=== PATIENT | female | born 1925 | race Caucasian/White ===

== ENCOUNTER 2017-02-27 08:00 | Outpatient (CLI) | payer MEDICARE, BC | END 2017-02-27 23:59 | disposition home health service (06) | LOC: WOU 08:00 | PROVIDERS: ATTEND Podiatrist Foot & Ankle Surgery | DX: L89.524 Pressure ulcer of left ankle, stage 4 (principal); L89.894 Pressure ulcer of other site, stage 4; Z99.3 Dependence on wheelchair; I13.0 Hypertensive heart and chronic kidney disease with heart failure and stage 1 through stage 4 chronic kidney disease, or unspecified chronic kidney disease; N18.9 Chronic kidney disease, unspecified; I50.9 Heart failure, unspecified; Z79.01 Long term (current) use of anticoagulants; Z79.82 Long term (current) use of aspirin; Z79.899 Other long term (current) drug therapy; I73.9 Peripheral vascular disease, unspecified; R60.0 Localized edema; L03.116 Cellulitis of left lower limb | CPT/HCPCS: 73590; 73610; 87070; 87077; 87186 ×2; A6402; G0463; 87075-TC ==

== ENCOUNTER 2017-03-03 14:16 | Outpatient (CLI) | payer MEDICARE, BC | END 2017-03-03 23:59 | disposition home or self-care (01) | LOC: WOU 14:16 | PROVIDERS: ATTEND Podiatrist Foot & Ankle Surgery | DX: L89.899 Pressure ulcer of other site, unspecified stage (principal); I70.203 Unspecified atherosclerosis of native arteries of extremities, bilateral legs; I77.1 Stricture of artery | CPT/HCPCS: 93925; A6402 ==

== ENCOUNTER 2017-03-06 08:00 | Outpatient (CLI) | payer MEDICARE, BC | END 2017-03-06 23:59 | disposition home health service (06) | LOC: WOU 08:00 | PROVIDERS: ATTEND Podiatrist Foot & Ankle Surgery | DX: L89.894 Pressure ulcer of other site, stage 4 (principal); I77.1 Stricture of artery; L08.89 Other specified local infections of the skin and subcutaneous tissue; B95.2 Enterococcus as the cause of diseases classified elsewhere; B96.20 Unspecified Escherichia coli [E. coli] as the cause of diseases classified elsewhere; Z16.24 Resistance to multiple antibiotics; Z99.3 Dependence on wheelchair; I70.203 Unspecified atherosclerosis of native arteries of extremities, bilateral legs; M85.862 Other specified disorders of bone density and structure, left lower leg; S82.892G Other fracture of left lower leg, subsequent encounter for closed fracture with delayed healing; X58.XXXD Exposure to other specified factors, subsequent encounter | CPT/HCPCS: 11043; 87070-TC; 87186-TC ==

== ENCOUNTER 2017-03-13 09:30 | Outpatient (CLI) | payer MEDICARE, BC | END 2017-03-13 23:59 | disposition home health service (06) | LOC: WOU 09:30 | PROVIDERS: ATTEND Podiatrist Foot & Ankle Surgery | DX: L89.894 Pressure ulcer of other site, stage 4 (principal); L03.116 Cellulitis of left lower limb; I77.1 Stricture of artery; B95.2 Enterococcus as the cause of diseases classified elsewhere; B96.20 Unspecified Escherichia coli [E. coli] as the cause of diseases classified elsewhere; Z16.24 Resistance to multiple antibiotics; Z99.3 Dependence on wheelchair; I70.203 Unspecified atherosclerosis of native arteries of extremities, bilateral legs; M85.862 Other specified disorders of bone density and structure, left lower leg; S82.892G Other fracture of left lower leg, subsequent encounter for closed fracture with delayed healing; X58.XXXD Exposure to other specified factors, subsequent encounter | CPT/HCPCS: 11043; 87070; A6402 ==

== ENCOUNTER 2017-03-27 09:40 | Outpatient (CLI) | payer MEDICARE, BC | END 2017-03-27 23:59 | disposition home health service (06) | LOC: WOU 09:40 | PROVIDERS: ATTEND Podiatrist Foot & Ankle Surgery | DX: L89.894 Pressure ulcer of other site, stage 4 (principal); R60.0 Localized edema; I12.9 Hypertensive chronic kidney disease with stage 1 through stage 4 chronic kidney disease, or unspecified chronic kidney disease; N18.9 Chronic kidney disease, unspecified; Z87.81 Personal history of (healed) traumatic fracture | CPT/HCPCS: 11043; A6402 ==

== ENCOUNTER 2017-04-03 09:45 | Outpatient (CLI) | payer MEDICARE, BC | END 2017-04-03 23:59 | disposition home health service (06) | LOC: WOU 09:45 | PROVIDERS: ATTEND Podiatrist Foot & Ankle Surgery | DX: L89.894 Pressure ulcer of other site, stage 4 (principal); Z99.3 Dependence on wheelchair; R60.0 Localized edema; Z87.81 Personal history of (healed) traumatic fracture; M85.862 Other specified disorders of bone density and structure, left lower leg; I77.1 Stricture of artery; I12.9 Hypertensive chronic kidney disease with stage 1 through stage 4 chronic kidney disease, or unspecified chronic kidney disease; N18.9 Chronic kidney disease, unspecified | CPT/HCPCS: 11043; A6402 ==

== ENCOUNTER 2017-04-07 13:35 | Outpatient (CLI) | payer MEDICARE, BC | END 2017-04-07 23:59 | disposition home health service (06) | LOC: VASLAB 13:35 | PROVIDERS: ATTEND Surgery Vascular Surgery | DX: I73.9 Peripheral vascular disease, unspecified (principal); L89.894 Pressure ulcer of other site, stage 4; Z95.2 Presence of prosthetic heart valve; Z79.01 Long term (current) use of anticoagulants; Z74.09 Other reduced mobility; I77.9 Disorder of arteries and arterioles, unspecified | CPT/HCPCS: A6402; G0463 ==

== ENCOUNTER 2017-04-10 08:20 | Outpatient (CLI) | payer MEDICARE, BC | END 2017-04-10 23:59 | disposition home health service (06) | LOC: WOU 08:20 | PROVIDERS: ATTEND Podiatrist Foot & Ankle Surgery | DX: L89.524 Pressure ulcer of left ankle, stage 4 (principal); L03.116 Cellulitis of left lower limb; Z95.2 Presence of prosthetic heart valve; Z79.01 Long term (current) use of anticoagulants; Z74.09 Other reduced mobility; I77.9 Disorder of arteries and arterioles, unspecified; R60.0 Localized edema; Z99.3 Dependence on wheelchair; I12.9 Hypertensive chronic kidney disease with stage 1 through stage 4 chronic kidney disease, or unspecified chronic kidney disease; N18.9 Chronic kidney disease, unspecified | CPT/HCPCS: 11043; A6402; A6407 ==

== ENCOUNTER 2017-04-17 09:15 | Outpatient (CLI) | payer MEDICARE, BC | END 2017-04-17 23:59 | disposition home health service (06) | LOC: WOU 09:15 | PROVIDERS: ATTEND Podiatrist Foot & Ankle Surgery | DX: L89.894 Pressure ulcer of other site, stage 4 (principal); R60.0 Localized edema; L03.116 Cellulitis of left lower limb; Z95.2 Presence of prosthetic heart valve; Z79.01 Long term (current) use of anticoagulants; Z74.09 Other reduced mobility; I77.9 Disorder of arteries and arterioles, unspecified; I12.9 Hypertensive chronic kidney disease with stage 1 through stage 4 chronic kidney disease, or unspecified chronic kidney disease; N18.9 Chronic kidney disease, unspecified; Z99.3 Dependence on wheelchair | CPT/HCPCS: 11043; A6402; A6407 ==

== ENCOUNTER 2017-04-28 12:30 | Outpatient (CLI) | payer MEDICARE, BC | END 2017-04-28 23:59 | disposition home health service (06) | LOC: WOU 12:30 | PROVIDERS: ATTEND Podiatrist Foot & Ankle Surgery | DX: L89.894 Pressure ulcer of other site, stage 4 (principal); R60.0 Localized edema; Z95.2 Presence of prosthetic heart valve; Z79.01 Long term (current) use of anticoagulants; Z74.09 Other reduced mobility; I77.9 Disorder of arteries and arterioles, unspecified; I12.9 Hypertensive chronic kidney disease with stage 1 through stage 4 chronic kidney disease, or unspecified chronic kidney disease; N18.9 Chronic kidney disease, unspecified; Z99.3 Dependence on wheelchair | CPT/HCPCS: 11043; A6402; A6407 ==

== ENCOUNTER 2017-05-05 09:10 | Outpatient (CLI) | payer MEDICARE, BC ==
[2017-05-05] MEDS ORDERED: METO50TA3 PO (11:55)
[2017-05-05] MEDS ORDERED: ATOR10TA PO (11:55)
[2017-05-05] MEDS ORDERED: WARF6TAB23 PO (11:55)
[2017-05-05] MEDS ORDERED: FURO20TA4 PO (11:55)
[2017-05-05] MEDS ORDERED: CIPR500T5 PO (11:55)
[2017-05-05] MEDS ORDERED: ALEN70TA45 PO (11:55)
[2017-05-05] MEDS ORDERED: WARF4TAB6 PO (11:55)
[2017-05-05] MEDS ORDERED: CELE200C PO (11:55)
[2017-05-05] MEDS ORDERED: LOSA50TA21 PO (11:55)
== END 2017-05-05 23:59 | disposition home health service (06) ==
LOC: WOU 09:10
PROVIDERS: ATTEND Podiatrist Foot & Ankle Surgery
DX: L89.894 Pressure ulcer of other site, stage 4 (principal); Z74.01 Bed confinement status; L90.9 Atrophic disorder of skin, unspecified; I95.9 Hypotension, unspecified; I12.9 Hypertensive chronic kidney disease with stage 1 through stage 4 chronic kidney disease, or unspecified chronic kidney disease; N18.9 Chronic kidney disease, unspecified; M19.90 Unspecified osteoarthritis, unspecified site; R41.82 Altered mental status, unspecified
CPT/HCPCS: A6402; G0463

== ENCOUNTER 2017-05-05 09:45 | Inpatient (IN) | payer MEDICARE, BC ==
[~2017-05-05] VITALS: Ht 157.5 cm; Wt 77.2 kg
--- NOTE | 2017-05-05 09:45 | NUR ---
BIBVINAY FROM AMPUTATION PREVENTION FOR GENERALIZED WEAKNESS. PATIENT A/OX 2. BREATHING EVEN AND UNLABORED. NO SOB. HYPOTENSIVE BUT NO DISTRESS. SAFETY AND COMFORT MEASURES IN PLACE. AWAITING MD ORDERS.
[2017-05-05] MEDS ORDERED: VANCOMYCIN 1 GM in IV D5W 250 ML IV ONE (10:00)
[2017-05-05] MEDS ORDERED: IV NS 0.9% 1,000 ML BAG IV ONE (10:00)
[2017-05-05] MEDS ORDERED: PIPERACILLIN /TAZOBACTAM 3.375 G in IV D5W 50 ML IV ONE (10:00)
--- NOTE | 2017-05-05 10:15 | NUR ---
new iv started on lfa, 20 g. blood drawn and sent to lab.
[2017-05-05 10:34] LABS: BASOPHILS # (AUTO) 0.1 /CMM (0.0-0.2); BASOPHILS % (AUTO) 0.6 % (0.0-2.0); EOSINOPHILS # (AUTO) 0.2 /CMM (0.0-0.7); HEMATOCRIT 35 % (33-45); HEMOGLOBIN 11.6 g/dL (11.5-14.8); INR 2.26 (0.87-1.13); LYMPHOCYTES # (AUTO) 1.5 /CMM (0.8-4.8); MEAN CORPUSCULAR HEMOGLOBIN 32 PG (26.0-33.0); MEAN CORPUSCULAR HGB CONC 33 g/dl (31.0-36.0); MEAN CORPUSCULAR VOLUME 96 fL (82-100); MONOCYTES # (AUTO) 0.6 /CMM (0.1-1.30); MONOCYTES % (AUTO) 6.3 % (2.0-12.0); NEUTROPHILS # (AUTO) 7.7 /CMM (1.8-8.9); NEUTROPHILS % (AUTO) 76.1 % (43.0-81.0); PLATELET COUNT (AUTO) 244 /CMM (150-450); PROTHROMBIN TIME 23.5 SECS (9.5-12.7); RDW COEFFICIENT OF VARIATION 14.6 (11.5-15.0); RED BLOOD CELL COUNT(AUTO) 3.66 MIL/uL (4.0-5.2); WHITE BLOOD COUNT (AUTO) 10.1 K/uL (4.3-11.0)
[2017-05-05 10:39] LABS: TROPONIN I < 0.017 ng/mL (0.00-0.056)
[2017-05-05 10:49] LABS: ALANINE AMINOTRANSFERASE 17 U/L (12-78); ALBUMIN 2.6 g/dL (3.4-5.0); ALKALINE PHOSPHATASE 59 U/L (46-116); ASPARTATE AMINOTRANSFERASE 16 U/L (15-37); B-TYPE NATRIURETIC PEPTIDE 1540 PG/ML (0-125); BILIRUBIN,TOTAL 0.2 mg/dL (0.2-1.0); CALCIUM, SERUM 8.4 mg/dL (8.5-10.1); CARBON DIOXIDE 25 mmol/L (21-32); CHLORIDE 106 mmol/L (98-107); CREATININE 2.1 mg/dL (0.6-1.3); GLUCOSE 123 mg/dL (74-106); POTASSIUM 6.1 mmol/L (3.5-5.1); SODIUM SERUM 139 mmol/L (136-145); TOTAL PROTEIN, SERUM 6.3 g/dL (6.4-8.2)
[2017-05-05 10:50] LABS: UREA NITROGEN, BLOOD 97 mg/dL (7-18)
--- NOTE | 2017-05-05 11:25 | NUR ---
Per Dr. Noland, insert burgos cath inserted per protocol. tolerated well.
[2017-05-05] MEDS ORDERED: ALEN70TA45 PO (11:55)
[2017-05-05] MEDS ORDERED: WARF4TAB6 PO (11:55)
[2017-05-05] MEDS ORDERED: LOSA50TA21 PO (11:55)
[2017-05-05] MEDS ORDERED: CELE200C PO (11:55)
[2017-05-05] MEDS ORDERED: WARF6TAB23 PO (11:55)
[2017-05-05] MEDS ORDERED: FURO20TA4 PO (11:55)
[2017-05-05] MEDS ORDERED: ATOR10TA PO (11:55)
[2017-05-05] MEDS ORDERED: CIPR500T5 PO (11:55)
[2017-05-05] MEDS ORDERED: METO50TA3 PO (11:55)
--- NOTE | 2017-05-05 11:59 | NUR ---
PATIENT ACCEPTED BY DR FALL AND ASSIGNED TO TELE 321-1, DX CELLULILITIS AND HYPOTENSION.
--- NOTE | 2017-05-05 12:26 | NUR ---
REPORT GIVEN TO CLAIRE BERNAL FOR ADMISSION.
[2017-05-05 12:30] VITALS: BP 118/50
[2017-05-05 12:44] LABS: APPEARANCE,URINE Clear (CLEAR); BILIRUBIN,URINE Negative (NEGATIVE); BLOOD, URINE Negative Ery/uL (NEGATIVE); COLOR,URINE Yellow (YELLOW); KETONES,URINE Negative (NEGATIVE); LEUKOCYTE ESTERASE ,URINE Negative (NEGATIVE); NITRITE, URINE Negative (NEGATIVE); PROTEIN,URINE Negative (NEGATIVE); UGLUCOSE Negative (NEGATIVE); UROBILINOGEN,URINE 0.2 EU/dL (0.2)
[2017-05-05 12:57] VITALS: BP 118/50
--- NOTE | 2017-05-05 13:00 | NUR ---
MECHANIC MARINE ENGINE NOTES PATIENT ADMITTED FROM ER ON TELE, CHEST MONITOR APPLIED. PT A/A/O X3, ON 02 -2L NC, NO RESPIRATORY DISTRESS, NO SOB , V/S TAKE BP-118/50, P-72, R-19, T-97.8, O2-95 2.0L NC. PT ON F/C DRAIN LIGHT YELLOW OUTPUT, INTACT. SKIN ASSESSMENT TAKEN 2 SMALL WOUND OPENING LEFT LOWER LATERAL AREA, AND ONE POSTERIOR , PICTURE TAKE, AND WOUND CONSULT TRIGGERED, ALSO LEFT FOOT EDEMA. NEEDS ATTENDED AND ANTICIPATED, BELONGING CHECKED, PATIENT VERBALIZED UNDERSTANDING. DR FALL AWARE OF NEW PATIENT AND MEDICATION, CONTINUED MONITORING.
[2017-05-05] MEDS ORDERED: ONDANSETRON HCL/PF 4 MG/2 ML VIAL IVP PRN (13:30)
[2017-05-05] MEDS ORDERED: MAG HYDROX/AL HYDROX/SIMETH 30 ML UDC PO PRN (13:30)
[2017-05-05] MEDS ORDERED: VANCOMYCIN 1 GM in IV D5W 250 ML IV SCH (13:30)
[2017-05-05] MEDS ORDERED: MAGNESIUM HYDROXIDE 30 ML UDC PO PRN (13:30)
[2017-05-05] MEDS ORDERED: ZOLPIDEM TARTRATE 5 MG TABLET PO PRN (13:30)
[2017-05-05] MEDS ORDERED: FEE PK DOSING 1 MIN EA MC ONE (14:16)
[2017-05-05] MEDS ORDERED: SODIUM POLYSTYRENE SULFONATE 15 G/60 ML BOTTLE PO ONE (14:30)
[2017-05-05] MEDS ORDERED: CEFTRIAXONE 1 G in IV D5W 50 ML IV SCH (15:00)
[2017-05-05 16:00] VITALS: BP 129/61
[2017-05-05] MEDS: METOPROLOL TARTRATE 50 MG TABLET PO SCH (16:56)
[2017-05-05] MEDS: WARFARIN SODIUM 1 MG TABLET PO SCH (16:58)
--- NOTE | 2017-05-05 17:00 | NUR ---
RN NOTES PATIENT IN THE BED, NO ACUTE DISTRESS, NO C/O PAIN AT THIS TIME, ON O2-2L NC, ASSIST TURN AND REPOSITION Q 2 HR, PT MED COMPLIANT, V/S STABLE, PUT DRESSING ON LEFT LOWER LEG, NEEDS ATTENDED AND ANTICIPATED, PRIVET PATIENT SERVICE REPRESENTATIVE NEXT TO THE BED , CALL LIGHT WITHIN TO REACH, SAFETY PRECAUTION MAINTAINED ALL THE TIME.
--- NOTE | 2017-05-05 19:12 | NUR ---
RN NOTES PATIENT A/O X3, NO COMPLAINING OF PAIN AT THIS TIME, HEP LOCK ON LEFT FOREARM, INTACT, NO RESPIRATORY DISTRESS, PRIVET FRACTIONATING STILL OPERATOR NEXT TO THE BED, CALL LIGHT WITHIN TO REACH, SAFETY PRECAUTION MAINTAINED ALL THE TIME, ENDORSED ONCOMING NURSE FOR CONTINUATION OF CARE.
--- NOTE | 2017-05-05 19:45 | NUR ---
RN OPENING NOTES RECEIVED REPORT FROM MONICO RN, RUDDY. FOUND Pt RESTING IN BED. A/OX2, VERBAL, ABLE TO MAKE NEEDS KNOWN. NO S/S OF ACUTE DISTRESS OR SOB NOTED. Pt IS A/OX2, AWARE TO NAME AND PLACE, BUT UNCERTAIN OF DATE AND YEAR. BELIEVES THAT CHER GILLIAM IS THE CURRENT PRESIDENT OF THE [employer]. PRIVATE CAREGIVER IS AT BEDSIDE WITH Pt. ON TELE. HONG CATHETER IN PLACE. IV ACCESS ON LFA #20G, SL. SAFETY MEASURES IN PLACE. BED LOW, LOCKED, HOB ELEVATED, SIDE RAILS UP, CALL LIGHT AND BEDSIDE TABLE WITHIN REACH. WILL CONTINUE TO MONITOR Pt THROUGHOUT THE NIGHT FOR SAFETY.
[2017-05-05 20:26] VITALS: BP 117/49
[2017-05-05] MEDS: ATORVASTATIN 10 MG TABLET PO SCH (21:49)
[2017-05-05] MEDS: MEROPENEM 500 MG in IV NS 0.9% 50 ML IV SCH (21:49)
[2017-05-05 23:50] VITALS: BP 115/59
[2017-05-06] VITALS (8 sets, daily range): BP systolic 111–126; BP diastolic 48–82
--- NOTE | 2017-05-06 06:50 | NUR ---
RN CLOSING NOTES NO SIGNIFICANT CHANGES NOTED DURING THE SHIFT. NO S/S OF ACUTE DISTRESS OR SOB NOTED. ALL NEEDS MET AND ATTENDED TO. SAFETY MEASURES IN PLACE. TELE READING SR 92, 1ST DEGREE BLOCK W/BBB. WILL ENDORSE TO DAYSHIFT RN FOR Pt's CRYS.
[2017-05-06 07:20] LABS: INR 1.9 (0.87-1.13); PROTHROMBIN TIME 19.9 SECS (9.5-12.7)
[2017-05-06 07:22] LABS: CALCIUM, SERUM 7.9 mg/dL (8.5-10.1); CARBON DIOXIDE 27 mmol/L (21-32); CHLORIDE 110 mmol/L (98-107); CREATININE 1.8 mg/dL (0.6-1.3); GLUCOSE 95 mg/dL (74-106); MAGNESIUM 2.9 mg/dL (1.8-2.4); PHOSPHORUS 7.2 mg/dL (2.5-4.9); POTASSIUM 5.1 mmol/L (3.5-5.1); SODIUM SERUM 145 mmol/L (136-145)
[2017-05-06 07:24] LABS: BASOPHILS % (AUTO) 0.5 % (0.0-2.0); EOSINOPHILS # (AUTO) 0.2 /CMM (0.0-0.7); EOSINOPHILS % (AUTO) 2.8 % (0.0-6.0); HEMATOCRIT 34 % (33-45); HEMOGLOBIN 11.1 g/dL (11.5-14.8); LYMPHOCYTES # (AUTO) 1.5 /CMM (0.8-4.8); MEAN CORPUSCULAR HEMOGLOBIN 32 PG (26.0-33.0); MEAN CORPUSCULAR HGB CONC 33 g/dl (31.0-36.0); MEAN CORPUSCULAR VOLUME 97 fL (82-100); MONOCYTES # (AUTO) 0.6 /CMM (0.1-1.30); MONOCYTES % (AUTO) 6.7 % (2.0-12.0); NEUTROPHILS # (AUTO) 6.4 /CMM (1.8-8.9); PLATELET COUNT (AUTO) 218 /CMM (150-450); RDW COEFFICIENT OF VARIATION 14.8 (11.5-15.0); RED BLOOD CELL COUNT(AUTO) 3.52 MIL/uL (4.0-5.2); WHITE BLOOD COUNT (AUTO) 8.7 K/uL (4.3-11.0)
[2017-05-06 07:40] LABS: UREA NITROGEN, BLOOD 80 mg/dL (7-18)
--- NOTE | 2017-05-06 08:00 | NUR ---
RN NOTES RECEIVED PATIENT IN THE RISA, A/A/ OX3, REDIRECTABLE ON O2-2L NC, NO SOB, NO RESPIRATORY DISTRESS, PATIENT BED REST, ASSIST TURN AND REPOSITION Q 2 HR, F/C DRAIN DARK YELLOW OUTPUT, ENCOURAGED TO INCREASE FLUID INTAKE, CERTIFIED OPHTHALMIC TECHNOLOGIST NEXT TO THE BED, ASSIST TURN AND REPOSITION Q 2 HR, CALL LIGHT WITHIN TO REACH, SAFETY PRECAUTION MAINTAINED ALL THE TIME.
[2017-05-06 08:14] LABS: CHOLESTEROL 161 mg/dL (<200); HDL CHOLESTEROL 42 mg/dL (40-60); LDL 87 mg/dL (0-99); TRIGLYCERIDES 178 mg/dL (30-150)
[2017-05-06] MEDS: METOPROLOL TARTRATE 50 MG TABLET PO SCH ×2 (08:41→17:50)
[2017-05-06] MEDS: MEROPENEM 500 MG in IV NS 0.9% 50 ML IV SCH ×2 (08:42→20:51)
[2017-05-06] MEDS ORDERED: HYDROGEL DRESSING 90 GM TUBE TP PRN (09:30)
--- NOTE | 2017-05-06 09:33 | NUR ---
WOUND CARE CONSULT: PT PRESENTS WITH 3 WOUNDS TO LEFT LOWER LEG, PRESENT ON ADMISSION. RECOMMENDATIONS MADE FOR WOUND CARE AND SKIN PROTECTION. DISCUSSED WITH NURSING STAFF. ALL SKIN PROTECTION MEASURES IN PLACE. CAREGIVER AT BEDSIDE. CURRENT JOSHUA SCORE IS 17. WILL SEE PRN. DR ORDONEZ TO FOLLOW PT FOR LOWER EXTREMITY WOUNDS. MD IN AGREEMENT WITH PLAN OF CARE. Addendum: 05/06/17 at 0935 by LEW HOLLOWAY WNDNU Amended: Links added.
--- NOTE | 2017-05-06 11:28 | NUR ---
RN NOTES PATIENT IN THE ROOM, NO ACUTE DISTRESS, NO RESPIRATORY DISTRESS, HEP LOCK IN THE RIGHT WRIST GAUGE OF 22, INTACT, , ASSIST TURN AND REPOSITION Q 2 HR, LAB RESULT NOTIFIED DR FALL, WAITING FOR RESPOND, CALL LIGHT WITHIN TO REACH, PRIVET WELLNESS PROGRAM ADMINISTRATOR NEXT TO THE BED , SAFETY PRECAUTION MAINTAINED ALL THE TIME.
[2017-05-06] MEDS: HYDROGEL DRESSING 90 GM TUBE TP SCH (11:49)
[2017-05-06] MEDS: HYDROCODONE/APAP 5/325MG 1 EACH TABLET PO PRN ×2 (11:52→17:50)
--- NOTE | 2017-05-06 11:52 | NUR ---
RN NOTES PATIENT A/O X3,WAS C/O PAIN GENERALIZED , ADMINISTERED NARCO 5/325 MG PO PRN PER PATIENT REQUEST PER SLIDING SCALE PAIN 6/10, V/S TAKEN BP -108/56, P-76, NO ACUTE DISTRESS, ASSIST TURN AND REPOSITION Q 2 HR, ENCOURAGED TO INCREASE FLUID INTAKE, CALL LIGHT WITHIN TO REACH, PRIVET AIR HOLE DRILLER NEXT TO THE BED. SAFETY PRECAUTION MAINTAINED ALL THE TIME.
--- NOTE | 2017-05-06 14:10 | NUR ---
N NOTES PATIENT IN THE ROOM, NO ACUTE DISTRESS NO RESPIRATORY DISTRESS, , PATIENT ON O2L NC, DRESSING CHANGED ON LEFT LOWER LEG, WOUND CULTURE TAKEN, MEDICATION WERE ADMINISTERED FOR PAIN EFFECTIVE, ASSIST TURN AND REPOSITION, CALL LIGHT WITHIN TO REACH, ENCOURAGED TO INCREASE FLUID INTAKE, SAFETY PRECAUTION MAINTAINED ALL THE TIME. PT NEEDS ATTENDED AND ANTICIPATED.
--- NOTE | 2017-05-06 17:50 | NUR ---
RN NOTES PATIENT IN THE BED, HOB ELEVATED LOOP TACKER ASSISTING TO EAT, NO RESPIRATORY DISTRESS, PATIENT MED COMPLIANT, V/S STABLE, ASSIST TURN AND REPOSITION Q 2 HR AND PRN, NEEDS ATTENDED AND ANTICIPATED, F/C DRAIN YELLOW OUTPUT. PATIENT SON NEXT TO THE BED, AND WANTED DO SPEAK DR. FALL ABOUT PATIENT CONDITION, NOTIFIED, CALL LIGHT WITHIN TO REACH, ALSO ADMINISTERED PAIN MEDICATION NARCO 5/325 MG PO PRN FOR GENERALIZED 6/10, PER PATIENT REQUEST. CONTINUED MONITORING.
[2017-05-06] MEDS: WARFARIN SODIUM 1 MG TABLET PO SCH (17:53)
--- NOTE | 2017-05-06 18:46 | NUR ---
RN NOTES MEDICATION WERE ADMINISTERED FOR PAIN EFFECTIVE, NO RESPIRATORY DISTRESS, PRIVET CARE FIVER NEXT TO THE BED, SAFETY PRECAUTION MAINTAINED ALL THE TIME. ENDORSED ONCOMING NURSE FOR CONTINUATION OF CARE.
--- NOTE | 2017-05-06 19:01 | NUR ---
RN NOTES ENDORSED ONCOMING NURSE TO REMIND DR FALL FOR 05/07 17 CALL PATIENT'S SON NAME RIDGE FOR PATIENT CONDITION PHONE # [phone].
--- NOTE | 2017-05-06 19:30 | NUR ---
MS/MONUMENT INSTALLER; RECEIVED PT IN BED SLEEPING. AWAKEN VERBALLY RESPONSIVE AND SHE SAID PRETTY GOOD. WITH O2 2L NC ON. FC INTACT WITH SLIGHT REDDISH WITH SEDIMENTS. LT LOWER EXT WITH DRESSING INTACT. BED ON LOWER POSITION AND LOCKED FOR SAFETY. SIDE RAILS ARE UP FOR SAFETY. WILL CONTINUE TO MONITOR CALL LIGHT WITHIN REACH.
[2017-05-06] MEDS: ATORVASTATIN 10 MG TABLET PO SCH (21:42)
--- NOTE | 2017-05-06 21:55 | NUR ---
MS/WELL FLOW OPERATOR; C/O PAIN BOTH LEGS; TYLENOL 650 MG PO Q6 PRN GIVEN TOLERATED.
[2017-05-06] MEDS: ACETAMINOPHEN 325 MG TABLET PO PRN (21:56)
[2017-05-07] MEDS ORDERED: VANCOMYCIN 0.75 GM in IV D5W 250 ML IV SCH ×2
--- NOTE | 2017-05-07 | NUR ---
MS/PSYCHOLOGIST INDUSTRIAL ORGANIZATIONAL; SLEEPING AT THIS TIME.
--- NOTE | 2017-05-07 02:00 | NUR ---
MS/ATTENUATOR; STILL SLEEPING. NOT IN DISTRESS. CONTINUE TO MONITOR.
--- NOTE | 2017-05-07 06:22 | NUR ---
MS/SENIOR SECURITY ARCHITECT; SLEPT AT GOOD INTERVALS. MORNING CARE DONE BY THE DIETETICS DIRECTOR./ HAS BEEN TURNED AND REPOSITIONED .CONTINUE TO MONITOR. CALL LIGHT WITHIN REACH. WILL ENDORSE TO THE DAY SHIFT NURSE.
[2017-05-07 07:16] LABS: BASOPHILS # (AUTO) 0.1 /CMM (0.0-0.2); BASOPHILS % (AUTO) 0.9 % (0.0-2.0); EOSINOPHILS # (AUTO) 0.2 /CMM (0.0-0.7); EOSINOPHILS % (AUTO) 2.3 % (0.0-6.0); HEMATOCRIT 33 % (33-45); HEMOGLOBIN 10.8 g/dL (11.5-14.8); LYMPHOCYTES # (AUTO) 1.4 /CMM (0.8-4.8); LYMPHOCYTES % (AUTO) 18.9 % (20.0-44.0); MEAN CORPUSCULAR HEMOGLOBIN 32 PG (26.0-33.0); MEAN CORPUSCULAR HGB CONC 33 g/dl (31.0-36.0); MEAN CORPUSCULAR VOLUME 98 fL (82-100); MONOCYTES # (AUTO) 0.4 /CMM (0.1-1.30); MONOCYTES % (AUTO) 5.8 % (2.0-12.0); NEUTROPHILS # (AUTO) 5.3 /CMM (1.8-8.9); NEUTROPHILS % (AUTO) 72.1 % (43.0-81.0); PLATELET COUNT (AUTO) 195 /CMM (150-450); RDW COEFFICIENT OF VARIATION 14.9 (11.5-15.0); RED BLOOD CELL COUNT(AUTO) 3.38 MIL/uL (4.0-5.2); WHITE BLOOD COUNT (AUTO) 7.4 K/uL (4.3-11.0)
--- NOTE | 2017-05-07 07:20 | NUR ---
RN NOTES: RECEIVED PATIENT RESTING IN BED. PATIENT ALERT ORIENTED X2. NONLABORED BREATHING ON 2 L NASAL CANNULA. IV SITE PATENT AND INTACT. NO FACIAL GRIMACES NOTED. SITTER AT BEDSIDE. BED IN LOWEST POSITION. CALL LIGHT WITHIN REACH. WILL CONTINUE TO MONITOR
[2017-05-07 07:34] LABS: CREATINE KINASE, TOTAL 68 U/L (26-192)
[2017-05-07 07:42] LABS: ALANINE AMINOTRANSFERASE 22 U/L (12-78); ALBUMIN 2.6 g/dL (3.4-5.0); ALKALINE PHOSPHATASE 60 U/L (46-116); ASPARTATE AMINOTRANSFERASE 18 U/L (15-37); BILIRUBIN,TOTAL 0.2 mg/dL (0.2-1.0); CALCIUM, SERUM 8.1 mg/dL (8.5-10.1); CARBON DIOXIDE 27 mmol/L (21-32); CHLORIDE 109 mmol/L (98-107); CREATININE 1.9 mg/dL (0.6-1.3); GLUCOSE 114 mg/dL (74-106); POTASSIUM 4.7 mmol/L (3.5-5.1); SODIUM SERUM 143 mmol/L (136-145); TOTAL PROTEIN, SERUM 6.4 g/dL (6.4-8.2)
[2017-05-07 07:43] LABS: UREA NITROGEN, BLOOD 80 mg/dL (7-18)
[2017-05-07 08:00] VITALS: BP 136/60
[2017-05-07] MEDS: METOPROLOL TARTRATE 50 MG TABLET PO SCH ×2 (09:18→16:00)
[2017-05-07] MEDS: MEROPENEM 500 MG in IV NS 0.9% 50 ML IV SCH ×2 (09:23→21:08)
[2017-05-07] MEDS: ACETAMINOPHEN 325 MG TABLET PO PRN (09:58)
[2017-05-07] MEDS: HYDROCODONE/APAP 5/325MG 1 EACH TABLET PO PRN (12:02)
[2017-05-07] MEDS ORDERED: IV NS 0.9% 1,000 ML IV PRN (15:30)
[2017-05-07 16:00] VITALS: BP 124/53
[2017-05-07 17:35] LABS: INR 1.83 (0.87-1.13); PROTHROMBIN TIME 19.1 SECS (9.5-12.7)
[2017-05-07] MEDS: HYDROGEL DRESSING 90 GM TUBE TP SCH (18:00)
[2017-05-07] MEDS: WARFARIN SODIUM 1 MG TABLET PO SCH (18:05)
--- NOTE | 2017-05-07 19:20 | NUR ---
RN NOTES: PATIENT RESTING IN BED. PATIENT ALERT ORIENTED X2. NONLABORED BREATHING ON 2 L NASAL CANNULA. IV SITE PATENT AND INTACT. NO FACIAL GRIMACES NOTED. CAREGIVER AT BEDSIDE. BED IN LOWEST POSITION. CALL LIGHT WITHIN REACH. ENDORSED TO NEXT SHIFT
--- NOTE | 2017-05-07 19:30 | NUR ---
MS/FINANCIAL AID ADVISOR; RECEIVED PT FROM THE DAY SHIFT RN FOR CRYS. PT AT THIS TIME AWAKE, ABLE TO TALK. DAY SHIFT RN JUST PUT THE IVF . WITH O2 2L NC ON. PT OWN ROVING OR YARN COLOR CHECKER AT THE BEDSIDE. SARINA PAIN. BED ON LOWER POSITION AND LOCKED FOR SAFETY. UPPER PART OF BED SIDE RAILS ARE UP FOR SAFETY. WILL CONTINUE TO MONITOR. CALL LIGHT WITHIN REACH.
[2017-05-07 20:00] VITALS: BP 125/60
[2017-05-07] MEDS: ATORVASTATIN 10 MG TABLET PO SCH (21:30)
[2017-05-08] VITALS (9 sets, daily range): BP systolic 125–158; BP diastolic 39–74
--- NOTE | 2017-05-08 | NUR ---
MS/PRESSER ALL AROUND; NOTED PT IV ON RWA IS SWOLLEN I REMOVED.
--- NOTE | 2017-05-08 00:30 | NUR ---
MS/OCCUPATIONAL THERAPY ASSIST; NEW IV LINE STARTED BY THE ICU CHARGE ON PT 'S LT HAND # 22 ANGIO CATH AND IVF RESUMED.
--- NOTE | 2017-05-08 07:20 | NUR ---
RN OPEN NOTES RECEIVED REPORT FROM JUNK REMOVAL SPECIALIST NURSE. WILL CONTINUE TO MONITOR AND ASSESS PATIENT THROUGH OUT MY SHIFT
[2017-05-08] MEDS: METOPROLOL TARTRATE 50 MG TABLET PO SCH ×2 (09:47→17:00)
[2017-05-08] MEDS: MEROPENEM 500 MG in IV NS 0.9% 50 ML IV SCH ×2 (09:47→20:55)
[2017-05-08] MEDS: HYDROGEL DRESSING 90 GM TUBE TP SCH (09:48)
[2017-05-08] MEDS: HYDROCODONE/APAP 5/325MG 1 EACH TABLET PO PRN (09:51)
[2017-05-08 10:35] LABS: CALCIUM, SERUM 8.2 mg/dL (8.5-10.1); CARBON DIOXIDE 25 mmol/L (21-32); CHLORIDE 112 mmol/L (98-107); CREATININE 1.4 mg/dL (0.6-1.3); GLUCOSE 114 mg/dL (74-106); MAGNESIUM 3.1 mg/dL (1.8-2.4); PHOSPHORUS 4.6 mg/dL (2.5-4.9); POTASSIUM 5.3 mmol/L (3.5-5.1); SODIUM SERUM 144 mmol/L (136-145); UREA NITROGEN, BLOOD 77 mg/dL (7-18)
[2017-05-08 11:01] LABS: HEMATOCRIT 32 % (33-45); HEMOGLOBIN 10.6 g/dL (11.5-14.8); RED BLOOD CELL COUNT(AUTO) 3.28 MIL/uL (4.0-5.2); WHITE BLOOD COUNT (AUTO) 8.2 K/uL (4.3-11.0)
[2017-05-08 11:02] LABS: BASOPHILS % (AUTO) 0.7 % (0.0-2.0); EOSINOPHILS % (AUTO) 2.1 % (0.0-6.0); LYMPHOCYTES % (AUTO) 17.7 % (20.0-44.0); MEAN CORPUSCULAR HEMOGLOBIN 32 PG (26.0-33.0); MEAN CORPUSCULAR HGB CONC 33 g/dl (31.0-36.0); MEAN CORPUSCULAR VOLUME 98 fL (82-100); MONOCYTES % (AUTO) 6.5 % (2.0-12.0); PLATELET COUNT (AUTO) 192 /CMM (150-450); RDW COEFFICIENT OF VARIATION 14.4 (11.5-15.0)
[2017-05-08 12:11] LABS: *SPE A/G RATIO 1.1 (0.7-1.7); *SPE ALPHA-1-GLOBULIN 0.2 g/dL (0.0-0.4); *SPE ALPHA-2-GLOBULIN 0.9 g/dL (0.4-1.0); *SPE GLOBULIN, TOTAL 2.8 g/dL (2.2-3.9); *SPE M-SPIKE Not Observed g/dL (Not Observed); *SPE PROTEIN TOTAL 5.8 g/dL (6.0-8.5); *SPEGAMMA GLOBULIN 0.7 g/dL (0.4-1.8); PTH, INTACT 120 pg/mL (15-65)
--- NOTE | 2017-05-08 12:53 | NUR ---
PATIENT COMPLAINS ON SOB. OXYGEN INCREASED FROM 2L TO 6L, AND PATIENT SATURATING AT 97%. PATIENT VERBALIZED FEELING BETTER. MD DR FALL PAGED. WAITING REPLY
--- NOTE | 2017-05-08 13:19 | NUR ---
DR FALL CALLED BACK. NEW ORDERS RECEIVED AND CARRIED OUT
[2017-05-08] MEDS ORDERED: Calcium Gluconate 0.465 MEQ/ML VIAL IV ONE (13:30)
[2017-05-08] MEDS ORDERED: Calcium Gluconate 1GM/10ML 4.65 MEQ in IV D5W 50 ML IV ONE (13:30)
--- NOTE | 2017-05-08 14:00 | NUR ---
DR FREITAS AT BEDSIDE.
[2017-05-08 14:03] LABS: ABG BASE EXCESS -0.7 mmol/L; ABG OXYGEN SATURATION 97.3 % (92.0-98.5); ABG PCO2 62.8 mmHg (35.0-45.0); ABG PH 7.257 (7.350-7.450); ABG PO2 110.1 mmHg (75.0-100.0); AaDO2 44.6 mmHg; COHb 0.3 % (0.5-1.5); MetHb 0.7 % (0.0-1.5); O2Hb 96.3 % (94.0-97.0); SITE, ABG Right Radial; VENT MODE, BG NASAL CANNULA
--- NOTE | 2017-05-08 14:15 | NUR ---
PATIENT TO BE TRANSFER TO ICU PER MD ORDERS
--- NOTE | 2017-05-08 16:00 | NUR ---
COMPLIANCE SPECIALIST RECEIVED PATIENT LETHARGIC ON BED TRANSFERRED FROM [facility], ANJANA BERNAL GAVE REPORT PATIENT SEEMS WEAK AND HAS SOB PLACED ON BIPAP, SATURATION 100% PATIENT CAN ANSWER QUESTIONS BUT UNCLEAR WORDS HEARD DRESSING DON AT THE LOWER EXTREMITIES BY ANJANA BERNAL MONITORED CLOSELY
--- NOTE | 2017-05-08 16:09 | NUR ---
PT PLACED ON BIPAP PER MD ORDER. SETTINGS PRESCRIBED. PT AWAKE AND ALERT. ORGANISATION AND METHODS ANALYST AT BED SIDE. ALARMS SET PER PROTOCOL AND AUDIBLE. BIPAP PLUGGED IN TO RED OUTLET. AMBU BAG AT BED SIDE. NO DISTRESS NOTED. WILL CONTINUE TO MONITOR. Addendum: 05/08/17 at 1611 by CHERI PATEL RT Amended: Links added.
--- NOTE | 2017-05-08 16:10 | NUR ---
PATIENT TRANSFERRED TO ICU WITH RT AND TWO CNAs. CAREGIVER AT BEDSIDE. REPORT GAVE TO GABE TREJO AT BEDSIDE
[2017-05-08 17:13] LABS: INR 1.79 (0.87-1.13); PROTHROMBIN TIME 18.7 SECS (9.5-12.7)
[2017-05-08] MEDS: WARFARIN SODIUM 1 MG TABLET PO SCH (17:40)
[2017-05-08] MEDS ORDERED: GENTAMICIN 0.1% OINT 15 GM TUBE TP ONE (18:00)
--- NOTE | 2017-05-08 18:13 | NUR ---
LOCOMOTIVE CRANE OPERATOR HELPER PATIENT HAS GENTAMYCIN OINTMENT, AWAITING MEDICATION
--- NOTE | 2017-05-08 19:35 | NUR ---
ICU/SOFTWARE SALES REPRESENTATIVE RT DID ABG, AND PT IS MOVING IN THE RIGHT DIRECTION FAR NUMBERS ARE CONCERN. PT CONTINUES TO BE ON BIPAP TOLERATING CURRENT SETTINGS. IN MORNING PT TO HAVE ANOTHER ABG.
[2017-05-08 19:51] LABS: ABG BASE EXCESS -2.1 mmol/L; ABG OXYGEN SATURATION 94.1 % (92.0-98.5); ABG PCO2 50.5 mmHg (35.0-45.0); ABG PH 7.305 (7.350-7.450); AaDO2 82.6 mmHg; COHb 0.3 % (0.5-1.5); MetHb 0.6 % (0.0-1.5); O2Hb 93.3 % (94.0-97.0); SITE, ABG Right Radial; VENT MODE, BG BIPAP 15/5
[2017-05-08] MEDS: ATORVASTATIN 10 MG TABLET PO SCH (21:23)
[2017-05-08] MEDS: IV NS 0.9% 250 ML IV PRN (21:29)
[2017-05-09] VITALS (38 sets, daily range): BP systolic 120–174; BP diastolic 42–110
[2017-05-09] MEDS: HYDROCODONE/APAP 5/325MG 1 EACH TABLET PO PRN ×2 (01:35→20:26)
--- NOTE | 2017-05-09 01:40 | NUR ---
ICU/BUSINESS APPLICATIONS MANAGER PT'S BLOOD PRESSURE HAS BEEN INCREASING SLOWLY OVER THE PAST FEW HOURS, THERE IS NO PRN FOR INCREASE BLOOD PRESSURE HOWEVER PT DOES HAVE NORCO 1 TAB PRN, PT STATED THAT SHE IS HAVING SOME PAIN. GAVE NORCO FOR THIS. PAIN WAS RATED 7/10 TO GENERALIZED AREA OF THE BODY. PT WAS TURNED AND REPOSITIONED FOR COMFORT AND CARE.WILL MONITOR PAIN AND BLOOD PRESSURE.
[2017-05-09] MEDS ORDERED: CLONIDINE HCL 0.1 MG TABLET ONE (02:21)
[2017-05-09] MEDS: CLONIDINE HCL 0.1 MG TABLET PO PRN ×2 (02:37→12:46)
--- NOTE | 2017-05-09 02:37 | NUR ---
ICU/FUEL TRUCK DRIVER CALLED MD FOR PRN BLOOD PRESSURE IS NOW 173/71, [place] GAVE PRN ORDER FOR CLONIDINE 0.1MG PO. THIS MEDICATION WAS GIVEN RIGHT AWAY. MD AWARE THAT HEART RATE IS VERY LOW IN THE 40'S. WILL CONTINUE TO MONITOR B/P. PT WAS TURNED AND REPOSITIONED FOR COMFORT AND CARE.
--- NOTE | 2017-05-09 02:56 | NUR ---
ICU/INTEGRATION SOFTWARE DEVELOPER BLOOD PRESSURE HAS COME DOWN TO 133/42. WILL CONTINUE TO MONITOR THE BLOOD PRESSURE.
--- NOTE | 2017-05-09 04:10 | NUR ---
ICU/CISO CALLED MD DUE TO HEART RATE IN THE 30'S. CHARGE NURSE WANTS TO GET PRN ORDER FOR ATROPINE IVP FOR HEART RATE 30'S. AWAIT CALL BACK FROM MD. PT APPEARS TO ASYMPTOMATIC WITH NO PAIN, NO SOB, WILL CONTINUE TO MONITOR THIS PT.
[2017-05-09 04:33] LABS: BASOPHILS % (AUTO) 0.5 % (0.0-2.0); EOSINOPHILS # (AUTO) 0.2 /CMM (0.0-0.7); EOSINOPHILS % (AUTO) 2.7 % (0.0-6.0); HEMATOCRIT 25 % (33-45); HEMOGLOBIN 7.9 g/dL (11.5-14.8); LYMPHOCYTES % (AUTO) 16.1 % (20.0-44.0); MEAN CORPUSCULAR HEMOGLOBIN 31 PG (26.0-33.0); MEAN CORPUSCULAR HGB CONC 32 g/dl (31.0-36.0); MEAN CORPUSCULAR VOLUME 97 fL (82-100); MONOCYTES # (AUTO) 0.4 /CMM (0.1-1.30); MONOCYTES % (AUTO) 6.4 % (2.0-12.0); NEUTROPHILS # (AUTO) 4.8 /CMM (1.8-8.9); NEUTROPHILS % (AUTO) 74.3 % (43.0-81.0); PLATELET COUNT (AUTO) 158 /CMM (150-450); RDW COEFFICIENT OF VARIATION 14.6 (11.5-15.0); RED BLOOD CELL COUNT(AUTO) 2.55 MIL/uL (4.0-5.2); WHITE BLOOD COUNT (AUTO) 6.4 K/uL (4.3-11.0)
--- NOTE | 2017-05-09 04:46 | NUR ---
ICU/SOFTWARE DEVELOPMENT ANALYST DR. LAZO CALLED GAVE ORDER FOR PRN ATROPINE FOR LOW HEART RATE, CHARGE NURSE AWARE OF THIS ORDER. WILL CONTINUE TO MONITOR THIS PT AND HEART RATE ALONG WITH THE BLOOD PRESSURE.
[2017-05-09 04:50] LABS: CALCIUM, SERUM 6.7 mg/dL (8.5-10.1); CARBON DIOXIDE 23 mmol/L (21-32); CHLORIDE 117 mmol/L (98-107); GLUCOSE 104 mg/dL (74-106); MAGNESIUM 2.3 mg/dL (1.8-2.4); PHOSPHORUS 2.9 mg/dL (2.5-4.9); POTASSIUM 4.2 mmol/L (3.5-5.1); SODIUM SERUM 146 mmol/L (136-145); UREA NITROGEN, BLOOD 55 mg/dL (7-18)
[2017-05-09] MEDS ORDERED: ATROPINE SULFATE 1 MG/10 ML DISP.SYRIN IV PRN (05:00)
--- NOTE | 2017-05-09 07:15 | NUR ---
SAND AND GRAVEL PLANT OPERATOR NOTES RECEIVED PATIENT CONFUSE , RE ORIENTED TO PLACE DATE AND TIME , ON BIPAP 15/ R 16 FIO2 30% WITH SPO2 OF 100% , SB 45-50'S ON BEDSIDE MONITOR , FC DRAINING WELL VIA GRAVITY WITH CLEAR YELLOW URINE , HAYDEN MIDLINE , RFA # 20 , L HAND # 22 PATENT AND INTACT SL , ALL NEEDS ATTENDED , BED ON LOW AND LOCKED POSITION , SIDE RAILS X2, CALL LIGHT WITHIN REACH , HOB @ 35 , WILL CONTINUE TO MONITOR .
[2017-05-09 07:48] LABS: INR 2.12 (0.87-1.13); PROTHROMBIN TIME 22.2 SECS (9.5-12.7)
--- NOTE | 2017-05-09 08:10 | NUR ---
VITICULTURE TEACHER NOTES BIPAP HELD , PLACED PT ON 4LPM NC , TOLERATING WELL WITH SPO2 OF 100% NO S/S OF DISTRESS NOTED , BREAKFAST GIVEN TO PT , NO S/S OF ASPIRATIONS NOTED , CONSUMED 50% OF HER MEAL , WILL CONTINUE TO MONITOR
[2017-05-09] MEDS: MEROPENEM 500 MG in IV NS 0.9% 50 ML IV SCH ×2 (08:43→20:26)
[2017-05-09] MEDS: METOPROLOL TARTRATE 50 MG TABLET PO SCH ×2 (08:43→17:26)
[2017-05-09] MEDS: HYDROGEL DRESSING 90 GM TUBE TP SCH (08:43)
[2017-05-09 09:48] LABS: ABG BASE EXCESS -0.6 mmol/L; ABG OXYGEN SATURATION 98.6 % (92.0-98.5); ABG PCO2 52.2 mmHg (35.0-45.0); ABG PH 7.316 (7.350-7.450); ABG PO2 228.8 mmHg (75.0-100.0); COHb 0.3 % (0.5-1.5); MetHb 0.6 % (0.0-1.5); O2Hb 97.7 % (94.0-97.0); SITE, ABG Right Radial
--- NOTE | 2017-05-09 09:52 | NUR ---
ARTS ADMINISTRATOR NOTES ABG REVIEWED , PLACED PT BACK ON BIPAP SETTING ORDERED WITH SPO2 OF 100% WILL CONTINUE TO MONITOR
--- NOTE | 2017-05-09 10:33 | NUR ---
PELTS SKINNER NOTES SEEN AND EVALUATED BY DR ASCENCIO , DISCUSSED LABS , CHEST XRAY AND ABG RESULT , PT ON 4 L NC @ 0810 NO S/S OF DISTRESS , TOLERATING WELL , PLACED PT ON BIPAP @ 1000 DUE TO PCO2 OF 52.2 , AWARE
[2017-05-09] MEDS: BOOST PLUS FOOD-CHOCLATE 237 ML BOX PO SCH (12:00)
--- NOTE | 2017-05-09 12:00 | NUR ---
SERVICER TRAVEL TRAILERS NOTES PT REFUSES BOOST , EXPLAINED THE BENEFITS OF IT , PT IS AOX2 WITH EPISODES OF CONFUSION PT STILL REFUSES .
--- NOTE | 2017-05-09 12:14 | NUR ---
VENEER GRADER NOTES SEEN AND EVALUATED BY DR TERRAZAS , DISCUSSED LABS , PT OFF BIPAP @ 0810 PLACED ON 4LPM NC , ABG RESULT DISCUSSED , PLACED BACK PT ON BIPAP DUE TO PCO2 OF 52.2 , DISCUSSED HR OF SB WITH 1ST DEGREE AV BLOCK WITH BBB 30-40 ON BIPAP , BUT WHEN PT IS OFF BIPAP HR GOES UP TO @ 80-90'S , PER MD KEEP PT ON 2LPM NC AND KEEP SPO2 OF 90-92 PT IS CO2 RETAINER , DISCUSSED RECOMMENDATION TO DR ASCENCIO ,
[2017-05-09 14:00] LABS: ABG BASE EXCESS -0.1 mmol/L; ABG OXYGEN SATURATION 97.2 % (92.0-98.5); ABG PCO2 56.7 mmHg (35.0-45.0); ABG PH 7.298 (7.350-7.450); ABG PO2 107.9 mmHg (75.0-100.0); AaDO2 39.4 mmHg; COHb 0.3 % (0.5-1.5); MetHb 0.7 % (0.0-1.5); O2Hb 96.2 % (94.0-97.0); SITE, ABG Right Radial
--- NOTE | 2017-05-09 14:06 | NUR ---
MEXICAN FOOD MAKER HAND NOTES' RT JERSEY RELAYED ABG RESULT TO DR ASCENCIO @ 2LPM CECILIA , AWARE , O2 TITRATED TO 1.5L NC , NO S/S OF OF DISTRESS , SPO2 OF 100% WILL CONTINUE TO MONITOR Addendum: 05/09/17 at 1418 by JUAN MARIE RN ORDERED NOCTURNAL BIPAP SETTINSG OF 15/5 R 16 FIO2 OF 30%
--- NOTE | 2017-05-09 14:45 | NUR ---
TOMBSTONE CARVER NOTES SEEN AND EVALUATED BY DR FALL ,DISCUSSED LABS , PT OFF BIPAP , CURRENTLY ON 1.5LPM NC WITH SPO2 OF 100% DISCUSSED ABG RESULT AND PLAN OF CARE OF DEVELOPER PROGRAMMER ANALYST AND JOGGER OPERATOR , AWARE . OK TO ORDER REPEAT H/H AND STOOL OB . ORDERS CARRIED OUT
[2017-05-09 15:18] LABS: HEMOGLOBIN 10.1 g/dL (11.5-14.8)
[2017-05-09] MEDS: WARFARIN SODIUM 1 MG TABLET PO SCH (17:33)
--- NOTE | 2017-05-09 19:27 | NUR ---
RN:ICU: PT RECEIVED IN BED, ABLE TO OPEN EYES AND FOLLOW SIMPLE COMMANDS. PT DENIES PAIN OR SOB. CAREGIVER AT THE BEDSIDE. ORDERS TO HAVE PT ON NOCTURNAL BIPAP, DISCUSSED POC WITH RT. PT WITH MILDLY LABORED BREATHING, O2 SAT 100% ON NC 1.5L. PT SINUS EDUARDO WITH BBB 50'S, ALTHOUGH PT REMAINS ASYMPTOMATIC. MIDLINE INTACT. WILL CONTINUE TO MONITOR CLOSELY. D/W PT AND CAREGIVER POC FOR TONIGHT.
--- NOTE | 2017-05-09 20:36 | NUR ---
RN:ICU: PT REQUESTING PAIN MEDICATION FOR BACK PAIN. PT REPOSITIONED FOR COMFORT AND GIVEN PRN NORCO PER MD ORDERS. RT PLACED PT ON BIPAP. PT AND CAREGIVER INFORMED REGARDING POC. HR PERIODICALLY DROPS TO 30'S BUT DOES NOT SUSTAIN. PRN ORDER FOR ATROPINE IF HR SUSTAINS 30'S. WILL CONTINUE TO MONITOR CLOSELY.
[2017-05-09] MEDS: ATORVASTATIN 10 MG TABLET PO SCH (22:17)
[2017-05-10] VITALS (32 sets, daily range): BP systolic 118–176; BP diastolic 41–86
[2017-05-10] MEDS: IV NS 0.9% 250 ML IV PRN ×2 (04:23→16:59)
[2017-05-10 04:46] LABS: BASOPHILS # (AUTO) 0.1 /CMM (0.0-0.2); BASOPHILS % (AUTO) 0.8 % (0.0-2.0); EOSINOPHILS # (AUTO) 0.3 /CMM (0.0-0.7); EOSINOPHILS % (AUTO) 3.8 % (0.0-6.0); HEMATOCRIT 29 % (33-45); HEMOGLOBIN 9.6 g/dL (11.5-14.8); LYMPHOCYTES # (AUTO) 1.7 /CMM (0.8-4.8); LYMPHOCYTES % (AUTO) 22.6 % (20.0-44.0); MEAN CORPUSCULAR HEMOGLOBIN 32 PG (26.0-33.0); MEAN CORPUSCULAR HGB CONC 33 g/dl (31.0-36.0); MEAN CORPUSCULAR VOLUME 96 fL (82-100); MONOCYTES # (AUTO) 0.4 /CMM (0.1-1.30); MONOCYTES % (AUTO) 5.9 % (2.0-12.0); NEUTROPHILS # (AUTO) 4.9 /CMM (1.8-8.9); NEUTROPHILS % (AUTO) 66.9 % (43.0-81.0); PLATELET COUNT (AUTO) 169 /CMM (150-450); RDW COEFFICIENT OF VARIATION 14.3 (11.5-15.0); RED BLOOD CELL COUNT(AUTO) 3.01 MIL/uL (4.0-5.2); WHITE BLOOD COUNT (AUTO) 7.4 K/uL (4.3-11.0)
[2017-05-10 04:54] LABS: INR 2.65 (0.87-1.13); PROTHROMBIN TIME 27.8 SECS (9.5-12.7)
[2017-05-10 05:01] LABS: CALCIUM, SERUM 8.4 mg/dL (8.5-10.1); CARBON DIOXIDE 27 mmol/L (21-32); CHLORIDE 115 mmol/L (98-107); GLUCOSE 99 mg/dL (74-106); MAGNESIUM 2.6 mg/dL (1.8-2.4); POTASSIUM 5.2 mmol/L (3.5-5.1); SODIUM SERUM 147 mmol/L (136-145); UREA NITROGEN, BLOOD 55 mg/dL (7-18)
--- NOTE | 2017-05-10 06:32 | NUR ---
RN:ICU: PT HR REMAINS LOW 30'S-60'S, ALTHOUGH NEVER SUSTAINED BELOW 40. PT REMAINS AROUSABLE TO TOUCH. CAREGIVER AT BEDSIDE. RIGHT UPPER ARM MIDLINE INTAKE WITH TKO RUNNING. WILL ENDORSE CARE TO ONCOMING SHIFT. NO SIGNIFICANT CHANGES IN PT CONDITION.
--- NOTE | 2017-05-10 07:15 | NUR ---
PATHOLOGY TECHNICIAN NOTES RECEIVED PATIENT AOX 1-2 WITH EPISODES OF CONFUSION , ON BIPAP 15/5 R 16 FIO2 30% WITH SPO2 OF 100% , SB 55 WITH BBB AND 1ST DEGREE AV BLOCK ON BEDSIDE MONITOR , FC DRAINING WELL VIA GRAVITY WITH CLEAR YELLOW URINE , HAYDEN MIDLINE , RFA # 20 , L HAND # 22 PATENT AND INTACT SL , ALL NEEDS ATTENDED , BED ON LOW AND LOCKED POSITION , SIDE RAILS X2, CALL LIGHT WITHIN REACH , HOB @ 35 , WILL CONTINUE TO MONITOR .
--- NOTE | 2017-05-10 07:30 | NUR ---
EMULSION OPERATOR NOTES NOCTURNAL BIPAP HELD , PLACED PT ON 1.5 LPM NC SPO2 OF 100% AT THIS TIME , TOLERATED DIET WELL WITH NO S/S OF ASPIRATION .
[2017-05-10] MEDS: METOPROLOL TARTRATE 50 MG TABLET PO SCH ×2 (08:04→16:55)
[2017-05-10] MEDS: HYDROGEL DRESSING 90 GM TUBE TP SCH (08:04)
[2017-05-10] MEDS: BOOST PLUS FOOD-CHOCLATE 237 ML BOX PO SCH (08:04)
[2017-05-10] MEDS: Z GUARD REMEDY 2 OZ OINT TP PRN (08:04)
[2017-05-10] MEDS: CLONIDINE HCL 0.1 MG TABLET PO PRN ×2 (09:31→16:57)
--- NOTE | 2017-05-10 09:59 | NUR ---
SURGICAL ELASTIC KNITTER NOTES DR SOUSA SEEN AND EVALUATED THE PT ,EXPLAINED PLAN OF CARE TO THE PT , DISCUSSED LABS , AND ELECTROLYTES , PT MIGHT BE DEHYDRATED . MD AGREES , SPO2 OF 98% VIA 1.5LPM NC , PENDING ABG RESULT AT THIS TIME , BP OF 170 / 57 CLONIDINE 0.1MG GIVEN . MD AWARE
--- NOTE | 2017-05-10 10:32 | NUR ---
TRANSIT MAN NOTES SEEN AND EVALUATED BY DR ASCENCIO , DISCUSSED LABS , DOING WELL WITH NOCTURNAL BIPAP , CURRENTLY ON 1.5LPM NC WITH SPO2 OF 98% WITH NO S/S OF DISTRESS , AFEBRILE , BP OF 156/76 , CLONIDINE 0.1MG GIVEN , NOTED WITH HAVE NON PRODUCTIVE COUGH , MD AWARE
[2017-05-10 10:50] LABS: ABG BASE EXCESS -2.2 mmol/L; ABG PCO2 54.4 mmHg (35.0-45.0); ABG PH 7.286 (7.350-7.450); ABG PO2 107.3 mmHg (75.0-100.0); SITE, ABG Right Radial
--- NOTE | 2017-05-10 10:58 | NUR ---
PAN PULLER NOTES RT JERSEY DISCUSSED ABG RESULT VIA 1.5LPM NC WITH DR ASCENCIO , NO NEW ORDERS RECEIVED , CONTINUE LOW FLOW O2 ORDERED
--- NOTE | 2017-05-10 12:17 | NUR ---
ASSOCIATE PROFESSOR OF PATHOLOGY NOTES SEEN AND EVALUATED BY DR FALL , DISCUSSED LABS , ABG RESULT CURRENTLY ON 1.5 LPM NC SPO2 OF 98% , AFEBRILE , AOX1-2 CONFUSED , PLAN OF CARE DISCUSSED BY DR FALL WITH SON AT BEDSIDE .
[2017-05-10] MEDS: WARFARIN SODIUM 1 MG TABLET PO SCH (16:54)
--- NOTE | 2017-05-10 19:19 | NUR ---
RESPITE WORKER NOTES CALLED [facility] MODERN GREEK STUDIES PROFESSOR AMI HELTON WITH DR VANG , PT STARTED WHEEZING VIA AUSCULTATION , PT ON 07/24 LPM NC , DISCUSSED DIAGNOSIS AND HISTORY , ORDERED DUO NEB Q4 WHILE AWAKE AND Q4 PRN . ORDERS CARRIED OUT CALLED RT FOR BREATHING TREATMENT .
[2017-05-10] MEDS ORDERED: ALBUTEROL FS 2.5 MG/0.5 ML VIAL.NEB NEB PRN (19:30)
[2017-05-10] MEDS ORDERED: IPRATROPIUM NEB FS 0.5 MG/2.5 ML AMPUL.NEB NEB PRN (19:30)
[2017-05-10] MEDS ORDERED: IPRATROPIUM NEB FS 0.5 MG/2.5 ML AMPUL.NEB ONE (19:34)
[2017-05-10] MEDS ORDERED: ALBUTEROL FS 2.5 MG/0.5 ML VIAL.NEB ONE (19:34)
[2017-05-10] MEDS: IPRATROPIUM NEB FS 0.5 MG/2.5 ML AMPUL.NEB NEB SCH ×2 (19:36→23:48)
[2017-05-10] MEDS: ALBUTEROL FS 2.5 MG/0.5 ML VIAL.NEB NEB SCH (19:36)
[2017-05-10] MEDS: HYDROCODONE/APAP 5/325MG 1 EACH TABLET PO PRN (19:51)
--- NOTE | 2017-05-10 20:00 | NUR ---
SWEDISH MASSEUSE - NOTES RECEIVED PATIENT AOX 1-2 ON 1.5 L NC WITH SPO2 OF 100% , SB WITH BBB AND 1ST DEGREE AV BLOCK ON BEDSIDE MONITOR , FC DRAINING WELL VIA GRAVITY WITH CLEAR YELLOW URINE , HAYDEN MIDLINE , RFA # 20 , L HAND # 22 PATENT AND INTACT SL , ALL NEEDS ATTENDED , BED ON LOW AND LOCKED POSITION , SIDE RAILS X2, CALL LIGHT WITHIN REACH , HOB @ 35 , WILL CONTINUE TO MONITOR .
[2017-05-10] MEDS: ATORVASTATIN 10 MG TABLET PO SCH (21:15)
[2017-05-11] VITALS (25 sets, daily range): BP systolic 114–157; BP diastolic 41–83
--- NOTE | 2017-05-11 00:10 | NUR ---
PT REFUSED BIPAP, PLACED BACK ON 1.5L NC, NO ACUTE DISTRESS, WILL CONTINUE TO MONITOR
--- NOTE | 2017-05-11 03:00 | NUR ---
full bed bath given, no bm, all wound tx done, and pictures taken
[2017-05-11] MEDS ORDERED: IPRATROPIUM NEB FS 0.5 MG/2.5 ML AMPUL.NEB ONE (03:37)
[2017-05-11] MEDS: IPRATROPIUM NEB FS 0.5 MG/2.5 ML AMPUL.NEB NEB SCH ×6 (03:40→23:34)
--- NOTE | 2017-05-11 04:00 | NUR ---
pt placed back on bipap
[2017-05-11 04:33] LABS: BASOPHILS % (AUTO) 0.4 % (0.0-2.0); EOSINOPHILS % (AUTO) 4.1 % (0.0-6.0); HEMATOCRIT 29 % (33-45); HEMOGLOBIN 9.6 g/dL (11.5-14.8); LYMPHOCYTES % (AUTO) 22.9 % (20.0-44.0); MEAN CORPUSCULAR HEMOGLOBIN 32 PG (26.0-33.0); MEAN CORPUSCULAR HGB CONC 33 g/dl (31.0-36.0); MEAN CORPUSCULAR VOLUME 97 fL (82-100); MONOCYTES % (AUTO) 6.4 % (2.0-12.0); NEUTROPHILS % (AUTO) 66.2 % (43.0-81.0); PLATELET COUNT (AUTO) 181 /CMM (150-450); RED BLOOD CELL COUNT(AUTO) 3.04 MIL/uL (4.0-5.2); WHITE BLOOD COUNT (AUTO) 7.2 K/uL (4.3-11.0)
[2017-05-11 04:34] LABS: EOSINOPHILS # (AUTO) 0.3 /CMM (0.0-0.7); LYMPHOCYTES # (AUTO) 1.6 /CMM (0.8-4.8); MONOCYTES # (AUTO) 0.5 /CMM (0.1-1.30); NEUTROPHILS # (AUTO) 4.7 /CMM (1.8-8.9)
[2017-05-11 04:48] LABS: INR 2.23 (0.87-1.13); PROTHROMBIN TIME 23.4 SECS (9.5-12.7)
[2017-05-11 04:49] LABS: CALCIUM, SERUM 8.1 mg/dL (8.5-10.1); CARBON DIOXIDE 28 mmol/L (21-32); CHLORIDE 114 mmol/L (98-107); GLUCOSE 95 mg/dL (74-106); MAGNESIUM 2.4 mg/dL (1.8-2.4); PHOSPHORUS 3.3 mg/dL (2.5-4.9); POTASSIUM 5.5 mmol/L (3.5-5.1); SODIUM SERUM 145 mmol/L (136-145); UREA NITROGEN, BLOOD 44 mg/dL (7-18)
--- NOTE | 2017-05-11 07:05 | NUR ---
RN INITIAL NOTES RECEIVED PT ASLEEP, EASILY AROUSABLE. ON BIPAP. HOB ELEVATED. NO RESPIRATORY DISTRESS NOTED. NO SOB NOTED. NO SIGNS OF PAIN NOTED. IV LINES IN PLACE. FC IN PLACE. NO HEMATURIA NOTED. DRESSING ON LEG LEG INTACT. CLEAN AND DRY. BLE ELEVATED. CAREGIVER AT BEDSIDE. PT COMFORTABLE. WILL MONITOR.
[2017-05-11] MEDS: ALBUTEROL FS 2.5 MG/0.5 ML VIAL.NEB NEB SCH ×4 (07:54→19:24)
[2017-05-11] MEDS: METOPROLOL TARTRATE 50 MG TABLET PO SCH ×2 (08:05→16:41)
[2017-05-11] MEDS: HYDROCODONE/APAP 5/325MG 1 EACH TABLET PO PRN ×3 (08:06→18:37)
[2017-05-11] MEDS: HYDROGEL DRESSING 90 GM TUBE TP SCH (08:10)
[2017-05-11] MEDS: BOOST PLUS FOOD-CHOCLATE 237 ML BOX PO SCH (09:36)
--- NOTE | 2017-05-11 09:50 | NUR ---
RN NOTES SEEN AND EXAMINED BY DR. MEDELLIN. AWARE PT'S RHYTHM, SB TO SR (30S-60S) WITH 1ST DEGREE AVB AND BBB. AWARE OF CURRENT LAB VALUES: HGB 9.6, HCT 29, POTASSIUM 5.5. ALSO AWARE OF CXR RESULT. ORDERED LASIX. NOTED AND CARRIED OUT.
[2017-05-11] MEDS ORDERED: FUROSEMIDE 20 MG/2 ML VIAL IV SCH (10:00)
--- NOTE | 2017-05-11 10:00 | NUR ---
RN NOTES SEEN AND EXAMINED BY DR. RAMIN BRO. AWARE OF CURRENT LAB VALUES: HGB 9.6, HCT 29, POTASSIUM 5.5. LASIX GIVEN. PER MD, RECHECK BMP AT 1600. NOTED AND CARRIED OUT. WILL MONITOR.
--- NOTE | 2017-05-11 10:30 | NUR ---
RN NOTES SEEN AND EXAMINED BY DR. REESE. AWARE OF CURRENT LAB VALUES. PT ON 02 AT 1.5LPM VIA NC. HOB ELEVATED. PT ANXIOUS, C/O SOB. RR 30S, 02 SAT 96%. BREATHING TX GIVEN, NOT EFFECTIVE. PT PLACED ON BIPAP WITH ADJUSTED SETTINGS PER DR. REESE. WILL CLOSELY MONITOR.
[2017-05-11 11:38] LABS: ABG PCO2 48.1 mmHg (35.0-45.0); ABG PH 7.364 (7.350-7.450); ABG PO2 86.5 mmHg (75.0-100.0); AaDO2 70.9 mmHg; COHb 0.3 % (0.5-1.5); MetHb 0.6 % (0.0-1.5); O2Hb 95.1 % (94.0-97.0); SITE, ABG Right Radial; VENT MODE, BG BIPAP 18/10 R16 30%
[2017-05-11 16:34] LABS: CARBON DIOXIDE 28 mmol/L (21-32); CHLORIDE 108 mmol/L (98-107); GLUCOSE 127 mg/dL (74-106); POTASSIUM 5.6 mmol/L (3.5-5.1); SODIUM SERUM 142 mmol/L (136-145); UREA NITROGEN, BLOOD 46 mg/dL (7-18)
[2017-05-11] MEDS: FUROSEMIDE 20 MG/2 ML VIAL IV SCH (16:40)
[2017-05-11] MEDS: WARFARIN SODIUM 1 MG TABLET PO SCH (16:40)
[2017-05-11] MEDS: IV NS 0.9% 250 ML IV PRN (16:41)
--- NOTE | 2017-05-11 16:59 | NUR ---
RN NOTES CALLED DR. FALL REGARDING RPT BMP. POTASSIUM 5.6 FROM 5.5. GIVEN LASIX 20MG THIS AM. PAGED. AWAITING CALL BACK. Addendum: 05/11/17 at 1724 by ALEJANDRO YANEZ RN [address] FALL CALLED BACK. PER , PT'S POTASSIUM LEVEL FLUCTUATES. NO ORDER MADE. WILL MONITOR.
--- NOTE | 2017-05-11 18:48 | NUR ---
RN CLOSING NOTES PT REMAINS STABLE. NO CHANGE IN LOC NOTED. HOB ELEVATED. PAIN WELL MANAGED. GIVEN MED ORDERED AND NOTED EFFECTIVE. IV LINES IN PLACE. FC IN PLACE. TX ORDERED. KEPT CLEAN AND DRY. REPOSITIONED Q2. BLE ELEVATED. KEPT COMFORTABLE. WILL ENDORSE FOR CONTINUITY OF CARE.
--- NOTE | 2017-05-11 19:30 | NUR ---
PT PLACED BACK ON BIPAP PER PT REQUEST, SETTINGS RATE 16 06/05 30% FIO2. 02SAT 99%, PT TOLERATING WELL
--- NOTE | 2017-05-11 20:00 | NUR ---
UNDERWEAR CUTTER - NOTES RECEIVED PATIENT AOX 1-2 ON BIPAP WITH SPO2 OF 99% , SB WITH BBB AND 1ST DEGREE AV BLOCK ON BEDSIDE MONITOR , FC DRAINING WELL VIA GRAVITY WITH CLEAR YELLOW URINE , HAYDEN MIDLINE , RFA # 20 , L HAND # 22 PATENT AND INTACT SL , ALL NEEDS ATTENDED , BED ON LOW AND LOCKED POSITION , SIDE RAILS X2, CALL LIGHT WITHIN REACH , HOB @ 35 , WILL CONTINUE TO MONITOR .
[2017-05-11] MEDS: ACETAMINOPHEN 325 MG TABLET PO PRN (20:15)
[2017-05-11] MEDS: ATORVASTATIN 10 MG TABLET PO SCH (21:50)
[2017-05-12] VITALS (26 sets, daily range): BP systolic 135–167; BP diastolic 47–79
--- NOTE | 2017-05-12 02:00 | NUR ---
PT REFUSED BIPAP, BIPAP TAKEN OFF, PT PLACED ON 1.5L NC, TOLERATING WELL
[2017-05-12] MEDS: IPRATROPIUM NEB FS 0.5 MG/2.5 ML AMPUL.NEB NEB SCH ×5 (03:30→19:53)
--- NOTE | 2017-05-12 04:00 | NUR ---
PT REFUSED BED BATH, STATING SHE IS WANTS TO REST, WILL ASK AGAIN LATER
[2017-05-12 04:30] LABS: BASOPHILS % (AUTO) 0.6 % (0.0-2.0); EOSINOPHILS # (AUTO) 0.4 /CMM (0.0-0.7); EOSINOPHILS % (AUTO) 4.8 % (0.0-6.0); HEMATOCRIT 29 % (33-45); HEMOGLOBIN 9.7 g/dL (11.5-14.8); LYMPHOCYTES # (AUTO) 1.6 /CMM (0.8-4.8); LYMPHOCYTES % (AUTO) 20.4 % (20.0-44.0); MEAN CORPUSCULAR HEMOGLOBIN 32 PG (26.0-33.0); MEAN CORPUSCULAR HGB CONC 33 g/dl (31.0-36.0); MEAN CORPUSCULAR VOLUME 97 fL (82-100); MONOCYTES # (AUTO) 0.5 /CMM (0.1-1.30); MONOCYTES % (AUTO) 5.8 % (2.0-12.0); NEUTROPHILS # (AUTO) 5.3 /CMM (1.8-8.9); NEUTROPHILS % (AUTO) 68.4 % (43.0-81.0); PLATELET COUNT (AUTO) 176 /CMM (150-450); RDW COEFFICIENT OF VARIATION 14.3 (11.5-15.0); RED BLOOD CELL COUNT(AUTO) 3.03 MIL/uL (4.0-5.2); WHITE BLOOD COUNT (AUTO) 7.7 K/uL (4.3-11.0)
[2017-05-12 05:07] LABS: CALCIUM, SERUM 8.3 mg/dL (8.5-10.1); CARBON DIOXIDE 29 mmol/L (21-32); CHLORIDE 111 mmol/L (98-107); GLUCOSE 87 mg/dL (74-106); MAGNESIUM 2.2 mg/dL (1.8-2.4); PHOSPHORUS 3.6 mg/dL (2.5-4.9); POTASSIUM 5.5 mmol/L (3.5-5.1); SODIUM SERUM 144 mmol/L (136-145); UREA NITROGEN, BLOOD 45 mg/dL (7-18)
--- NOTE | 2017-05-12 07:10 | NUR ---
RN INITIAL NOTES RECEIVED PT AWAKE, A/OX1-2. ON 02 AT 1.5LPM VIA NC. HOB ELEVATED. NO SOB NOTED. DENIES ANY PAIN. IV LINES IN PLACE. FC IN PLACE. NO HEMATURIA NOTED. BLE ELEVATED. DRESSING ON LEFT LEG CLEAN AND DRY. CAREGIVER AT BEDSIDE. PT COMFORTABLE. CALL LIGHT WITHIN REACH. WILL MONITOR.
[2017-05-12] MEDS: ALBUTEROL FS 2.5 MG/0.5 ML VIAL.NEB NEB SCH ×4 (07:21→19:53)
[2017-05-12] MEDS: FUROSEMIDE 20 MG/2 ML VIAL IV SCH (08:09)
[2017-05-12] MEDS: HYDROCODONE/APAP 5/325MG 1 EACH TABLET PO PRN ×2 (08:09→18:42)
[2017-05-12] MEDS: BOOST PLUS FOOD-CHOCLATE 237 ML BOX PO SCH (08:11)
[2017-05-12] MEDS: METOPROLOL TARTRATE 50 MG TABLET PO SCH ×2 (08:11→16:26)
[2017-05-12] MEDS: HYDROGEL DRESSING 90 GM TUBE TP SCH (08:12)
--- NOTE | 2017-05-12 10:30 | NUR ---
RN NOTES SEEN AND EXAMINED BY DR. REESE. AWARE OF PT'S CURRENT LAB VALUES AND IMAGING RESULT. PT ON AT 1.5LPM. ON BIPAP FOR SHORT PERIOD OF TIME LAST NIGHT. HOB ELEVATED. NO ORDER MADE.
--- NOTE | 2017-05-12 11:10 | NUR ---
RN NOTES SEEN AND EXAMINED BY DR. MEDELLIN. AWARE OF CURRENT LAB VALUES:HGB 9.7, HCT29, POTASSIUM 5.5 AND CXR RESULT. LASIX GIVEN ORDERED. URINE OUTPUT IMPROVED. NO ORDER MADE. WILL MONITOR.
[2017-05-12 12:27] LABS: INR 2.06 (0.87-1.13); PROTHROMBIN TIME 21.6 SECS (9.5-12.7)
--- NOTE | 2017-05-12 13:00 | NUR ---
RN NOTES SEEN AND EXAMINED BY DR. MAO OCASIO. AWARE OF CURRENT LAB VALUES: WBC 7.7, HGB 9.7, HCT 29, PLATELET 176, POTASSIUM 5.5, BUN 45. ALSO AWARE OF CXR RESULT. PT ON 02 AT 1.5LPM VIA NC. HOB ELEVATED. NO ORDER MADE. WILL CONTINUE TO MONITOR.
[2017-05-12 13:29] LABS: ABG BASE EXCESS 2.8 mmol/L; ABG OXYGEN SATURATION 94.6 % (92.0-98.5); ABG PCO2 44.5 mmHg (35.0-45.0); ABG PH 7.414 (7.350-7.450); ABG PO2 74.2 mmHg (75.0-100.0); COHb 0.3 % (0.5-1.5); MetHb 0.7 % (0.0-1.5); O2Hb 93.7 % (94.0-97.0); SITE, ABG Right Radial
[2017-05-12] MEDS ORDERED: SODIUM POLYSTYRENE SULFONATE 15 G/60 ML BOTTLE PO ONE (14:00)
--- NOTE | 2017-05-12 14:00 | NUR ---
RN NOTES SEEN AND EXAMINED BY DR. BRO. AWARE OF CURRENT LAB VALUES AND CXR RESULT. ADEQUATE URINE OUTPUT NOTED. NO ORDER MADE. WILL MONITOR.
[2017-05-12] MEDS: WARFARIN SODIUM 1 MG TABLET PO SCH (16:27)
[2017-05-12] MEDS: IV NS 0.9% 250 ML IV PRN (17:17)
--- NOTE | 2017-05-12 18:57 | NUR ---
RN CLOSING NOTES PT REMAINS STABLE. NO CHANGE IN LOC NOTED. HOB ELEVATED. PAIN WELL MANAGED. GIVEN PAIN MED ORDERED AND NOTED EFFECTIVE. IV LINES IN PLACE. FC IN PLACE. TX ORDERED. KEPT CLEAN AND DRY. REPOSITIONED Q2. BLE ELEVATED. KEPT COMFORTABLE. CAREGIVER AT BEDSIDE. WILL ENDORSE FOR CONTINUITY OF CARE.
[2017-05-12] MEDS: MEROPENEM 500 MG in IV NS 0.9% 50 ML IV SCH (19:52)
--- NOTE | 2017-05-12 20:15 | NUR ---
RN:ICU: PT RECEIVED IN BED ALERT AND ORIENTED 2-3. PT ON 1.5 L NC, WITH NOCTURNAL BIPAP. PT JUST RECEIVED NORCO BY PREVIOUS SHIFT FOR GENERALIZED PAIN, WITH MODERATE EFFECTIVENESS. PT DENIES ANY SOB OR CP. PT HR REMAINS SR-SB WITH BBB AND 1DEGREE AV BLOCK. CAREGIVER REMAINS AT THE BEDSIDE. HAYDEN MIDLINE INTACT. NO ACUTE DISTRESS NOTED. VSS. WILL CONTINUE TO MONITOR CLOSELY.
[2017-05-12] MEDS: ATORVASTATIN 10 MG TABLET PO SCH (22:15)
[2017-05-13] VITALS (26 sets, daily range): BP systolic 96–175; BP diastolic 41–91
--- NOTE | 2017-05-13 | NUR ---
RN;ICU; PT TOLERATING NC 1.5L, PT REQUESTING NOT TO HAVE BIPAP. PT APPEAR COMFORTABLE. PT REPOSITIONED FOR COMFORT. WILL CONTINUE TO MONITOR CLOSELY.
[2017-05-13] MEDS: IPRATROPIUM NEB FS 0.5 MG/2.5 ML AMPUL.NEB NEB SCH ×7 (00:10→23:46)
[2017-05-13] MEDS: CLONIDINE HCL 0.1 MG TABLET PO PRN (03:36)
[2017-05-13] MEDS: HYDROCODONE/APAP 5/325MG 1 EACH TABLET PO PRN ×3 (03:37→14:41)
[2017-05-13 04:46] LABS: BASOPHILS # (AUTO) 0.1 /CMM (0.0-0.2); BASOPHILS % (AUTO) 0.8 % (0.0-2.0); EOSINOPHILS # (AUTO) 0.3 /CMM (0.0-0.7); EOSINOPHILS % (AUTO) 4.4 % (0.0-6.0); HEMATOCRIT 29 % (33-45); HEMOGLOBIN 9.7 g/dL (11.5-14.8); LYMPHOCYTES # (AUTO) 1.2 /CMM (0.8-4.8); LYMPHOCYTES % (AUTO) 15.9 % (20.0-44.0); MEAN CORPUSCULAR HEMOGLOBIN 32 PG (26.0-33.0); MEAN CORPUSCULAR HGB CONC 33 g/dl (31.0-36.0); MEAN CORPUSCULAR VOLUME 95 fL (82-100); MONOCYTES # (AUTO) 0.4 /CMM (0.1-1.30); MONOCYTES % (AUTO) 5.6 % (2.0-12.0); NEUTROPHILS # (AUTO) 5.7 /CMM (1.8-8.9); NEUTROPHILS % (AUTO) 73.3 % (43.0-81.0); PLATELET COUNT (AUTO) 186 /CMM (150-450); RDW COEFFICIENT OF VARIATION 14.3 (11.5-15.0); RED BLOOD CELL COUNT(AUTO) 3.06 MIL/uL (4.0-5.2); WHITE BLOOD COUNT (AUTO) 7.8 K/uL (4.3-11.0)
[2017-05-13 05:15] LABS: CALCIUM, SERUM 8.4 mg/dL (8.5-10.1); CARBON DIOXIDE 31 mmol/L (21-32); CHLORIDE 114 mmol/L (98-107); CREATININE 0.8 mg/dL (0.6-1.3); GLUCOSE 95 mg/dL (74-106); POTASSIUM 4.7 mmol/L (3.5-5.1); SODIUM SERUM 145 mmol/L (136-145); UREA NITROGEN, BLOOD 30 mg/dL (7-18)
--- NOTE | 2017-05-13 07:15 | NUR ---
[employer]IST SUPERVISOR- INITIAL NOTE RECEIVED PT A/O X2, OCC CONFUSION NOTED. ON 1.5L NC, RESPIRATIONS EVEN AND UNLABORED, NO SOB OR DISTRESS PRESENT. BEDSIDE MONITOR REVEALS SINUS RHYTHM WITH FIRST DEGREE HEART BLOCK AND BUNDLE BRANCH BLOCK. HONG CATHETER PRESENT & DRAINING TO GRAVITY. HAYDEN MIDLINE ON TKO. CAREGIVER AT BEDSIDE. SAFETY MEASURES TAKEN: BED LOCKED AND IN LOW POSITION, SIDE RAILS UP X2, BED ALARM ON AND CALL LIGHT WITHIN REACH, WILL CONTINUE TO MONITOR.
[2017-05-13] MEDS: ALBUTEROL FS 2.5 MG/0.5 ML VIAL.NEB NEB SCH ×4 (07:54→19:49)
[2017-05-13] MEDS: IV NS 0.9% 250 ML IV PRN (08:10)
[2017-05-13] MEDS: MEROPENEM 500 MG in IV NS 0.9% 50 ML IV SCH ×2 (08:10→20:00)
[2017-05-13] MEDS: METOPROLOL TARTRATE 50 MG TABLET PO SCH ×2 (08:10→17:40)
[2017-05-13] MEDS: HYDROGEL DRESSING 90 GM TUBE TP SCH (08:11)
[2017-05-13] MEDS: BOOST PLUS FOOD-CHOCLATE 237 ML BOX PO SCH (08:11)
[2017-05-13] MEDS ORDERED: FUROSEMIDE 20 MG/2 ML VIAL IV SCH (09:00)
[2017-05-13] MEDS: AMLODIPINE BESYLATE 5 MG TABLET PO SCH (09:00)
[2017-05-13 10:05] LABS: INR 1.71 (0.87-1.13); PROTHROMBIN TIME 17.9 SECS (9.5-12.7)
--- NOTE | 2017-05-13 16:30 | NUR ---
BAND CUTTER- COMPLETE BED BATH GIVEN TO PATIENT WITH ASSISTANCE FROM CAREGIVER. WOUND CARE DONE. PT TOLERATED WELL. WILL CONTINUE TO MONITOR.
[2017-05-13] MEDS: WARFARIN SODIUM 1 MG TABLET PO SCH (17:40)
[2017-05-13] MEDS: ATORVASTATIN 10 MG TABLET PO SCH (21:38)
--- NOTE | 2017-05-13 21:52 | NUR ---
PLACED ON BIPAP RN NOTIFIED. WILL CONTINUE TO MONITOR.
--- NOTE | 2017-05-13 23:10 | NUR ---
PT REFUSING BIPAP, SAYS IT IS UNCOMFORTABLE AND SHE DOES NOT WANT TO KEEP IT ON, PT PLACED 1.5 L NC
--- NOTE | 2017-05-13 23:20 | NUR ---
PT PLACED BACK ON BIPAP BY RT, SHE AGREES TO WEAR BIPAP
[2017-05-14] VITALS (20 sets, daily range): BP systolic 127–160; BP diastolic 48–112
[2017-05-14] MEDS: IPRATROPIUM NEB FS 0.5 MG/2.5 ML AMPUL.NEB NEB SCH ×6 (03:12→23:16)
[2017-05-14 04:31] LABS: EOSINOPHILS # (AUTO) 0.3 /CMM (0.0-0.7); EOSINOPHILS % (AUTO) 3.6 % (0.0-6.0); HEMATOCRIT 30 % (33-45); HEMOGLOBIN 9.8 g/dL (11.5-14.8); LYMPHOCYTES # (AUTO) 1.4 /CMM (0.8-4.8); LYMPHOCYTES % (AUTO) 15.4 % (20.0-44.0); MEAN CORPUSCULAR HEMOGLOBIN 32 PG (26.0-33.0); MEAN CORPUSCULAR HGB CONC 33 g/dl (31.0-36.0); MEAN CORPUSCULAR VOLUME 95 fL (82-100); MONOCYTES # (AUTO) 0.5 /CMM (0.1-1.30); MONOCYTES % (AUTO) 5.3 % (2.0-12.0); NEUTROPHILS # (AUTO) 6.6 /CMM (1.8-8.9); NEUTROPHILS % (AUTO) 75.7 % (43.0-81.0); PLATELET COUNT (AUTO) 190 /CMM (150-450); RDW COEFFICIENT OF VARIATION 14.5 (11.5-15.0); WHITE BLOOD COUNT (AUTO) 8.8 K/uL (4.3-11.0)
[2017-05-14 04:47] LABS: CALCIUM, SERUM 8.4 mg/dL (8.5-10.1); CARBON DIOXIDE 33 mmol/L (21-32); CHLORIDE 113 mmol/L (98-107); CREATININE 0.9 mg/dL (0.6-1.3); GLUCOSE 99 mg/dL (74-106); PHOSPHORUS 3.8 mg/dL (2.5-4.9); POTASSIUM 4.8 mmol/L (3.5-5.1); SODIUM SERUM 147 mmol/L (136-145); UREA NITROGEN, BLOOD 32 mg/dL (7-18)
--- NOTE | 2017-05-14 07:30 | NUR ---
MANAGER INTERVENTIONAL RECEIVED PATIENT AWAKE SITTING ON BED ALERT AWAKE ORIENTED X 3, MAINTAINED ON 1.5 LITERS VIA NASAL CANNULA SATURATING WELL WEAKNESS OF LOWER EXTREMITIES NO UNTOWARD SYMPTOMS SEEN AT THE MOMENT PLACED ON HER COMFORTABLE POSITION CAREGIVER AT BEDSIDE, SEEN BY WOUND CARE NURSE
[2017-05-14] MEDS: ALBUTEROL FS 2.5 MG/0.5 ML VIAL.NEB NEB SCH ×4 (07:35→20:35)
[2017-05-14] MEDS: AMLODIPINE BESYLATE 5 MG TABLET PO SCH (08:07)
[2017-05-14] MEDS: MEROPENEM 500 MG in IV NS 0.9% 50 ML IV SCH ×2 (08:07→21:12)
[2017-05-14] MEDS: FUROSEMIDE 20 MG TABLET PO SCH (08:07)
[2017-05-14] MEDS: METOPROLOL TARTRATE 50 MG TABLET PO SCH ×2 (08:08→18:12)
--- NOTE | 2017-05-14 08:15 | NUR ---
WOUND CARE CONSULT: PT SEEN FOR RAISED SKIN LESION TO RT SIDE OF NECK. PT AND CAREGIVER STATE THIS LESION HAS BEEN THERE FOR 2 YEARS. DEFER TO MD FOR SKIN LESION. DR ORDONEZ FOLLOWING PT FOR LOWER EXTREMITY WOUNDS. WILL SEE PRN. ALL SKIN PROTECTION MEASURES IN PLACE. PT ON FIRST STEP MATTRESS. MD IN AGREEMENT WITH PLAN OF CARE. Addendum: 05/14/17 at 0817 by LEW HOLLOWAY WNDNU Amended: Links added.
[2017-05-14] MEDS: BOOST PLUS FOOD-CHOCLATE 237 ML BOX PO SCH (08:18)
[2017-05-14] MEDS: HYDROGEL DRESSING 90 GM TUBE TP SCH (08:19)
[2017-05-14] MEDS: HYDROCODONE/APAP 5/325MG 1 EACH TABLET PO PRN ×3 (08:19→23:25)
[2017-05-14 09:29] LABS: INR 1.47 (0.87-1.13); PROTHROMBIN TIME 15.3 SECS (9.5-12.7)
[2017-05-14] MEDS: ENOXAPARIN SODIUM 80 MG/0.8 ML DISP.SYRIN SQ SCH (10:19)
--- NOTE | 2017-05-14 15:04 | NUR ---
TUB CHUCKER PATIENT TRANSFERRED TO [facility], STABLE REPORT GIVEN TO GABE ZHANG NO UNTOWARD SYMPTOMS SEEN ENDORSED TO NOD
[2017-05-14] MEDS: Z GUARD REMEDY 2 OZ OINT TP PRN (15:47)
[2017-05-14] MEDS ORDERED: WARFARIN SODIUM 2 MG TABLET PO SCH (17:00)
--- NOTE | 2017-05-14 19:00 | NUR ---
RN NOTES: 1500h REC'D REPORT FROM RODBUSTERGABE WALDEN. PT TRANSFERRED TO ROOM 1191 UNDER [facility] STATUS. PT IS A/O X2-3, ABLE TO MAKE NEEDS KNOWN, NOT IN ANY DISTRESS, NO SOB. ON O2 AT 1LPM/NC, SATURATING AT 96%. PLACED ON TELEMONITOR, SR W/ AVB & BBB. IV LINE ACCESSES BOTH FLUSHED, PATENT & INTACT W/ NO S/SX OF INFECTION/INFILTRATION. FC DRAINING TO ADEQUATE URINE OUTPUT. HAS CAREGIVER AT BEDSIDE. PT ORIENTED TO ROOM. PROVIDED COMFORT & SAFETY MEASURES. 1900h NO ACUTE CHANGES NOTED W/IN SHIFT. KEPT WELL RESTED. NEEDS ATTENDED. ENDORSED TO PM RN FOR CRYS.
--- NOTE | 2017-05-14 20:00 | NUR ---
[facility] RN NOTES RECEIVED PTS ON BED AWAKE ALERT AND RESPONSIVE WITH EPISODE OF CONFUSSION ,CAREGIVER AT BEDSIDE ,V/S STABLE AFEBRILE NO SOB NO DISTRESS NOTED NO COMPLAIN OF PAIN AT OF THIS TIME. ON TELE -SR 1ST DEGREE BLOCK , BBB , ON 02 AT 1LITERS VIA NC SATING 99% WELL TOLERATED.ALL NEEDS ATENDED TOO DUE MEDS GIVEN ORDERED , HOB ELEVATED FOR ASPIRATION PRECAUTION, SUCTION SECRETION DONE AND PRN.KEPT PTS CLEAN DRY AND COMFORTABLE.WILL CONTINUE TO MONITOR PTS
[2017-05-14] MEDS: ATORVASTATIN 10 MG TABLET PO SCH (21:12)
--- NOTE | 2017-05-14 22:30 | NUR ---
[facility] RN NOTES OFFER VIPAP , PTS REFUSED , O2 SATS 99% WITH O2 AT 2LITERS VIA NC. NO SOB NO DISTRESS NOTED NO COMPLAIN OF PAIN , WILL CONTINUE TO MONITOR TO MONITOR PTS .TURNED AND REPOSITION Q 2 HRS AND PRN. BREATHING TX GIVEN BY RT
--- NOTE | 2017-05-14 22:53 | NUR ---
ATTEMPTED TO PLACED BIPAP , PT REFUSED AT THIS TIME. NO RESPIRATORY DISTRESS OR SOB NOTED. SPO2 98% , GABE OSULLIVAN NOTIFIED.
[2017-05-15] VITALS (7 sets, daily range): BP systolic 97–154; BP diastolic 38–77
--- NOTE | 2017-05-15 | NUR ---
[facility] RN NOTES PTS ON BED ASLEEP COMFORTABLY.STILL REFUSING FOR BIPAP ,EXPLAIN W/B STILL PTS REFUSES BIPAP , PTS ON 02 AT 2LITERS VIA NC SATING 99%.PTS ON CONTACT ISOLATION ESBL WOUND , PRECAUTIONARY MEASURES OBSERVED ALL THE TIME . CAREGIVER AT BEDSIDE . BREATHING TX GIVEN BY RT ORDERED .
[2017-05-15] MEDS: IPRATROPIUM NEB FS 0.5 MG/2.5 ML AMPUL.NEB NEB SCH ×6 (03:48→23:36)
--- NOTE | 2017-05-15 05:42 | NUR ---
[facility] RN NOTES MORNING CARE DONE , PTS NO C/O OF PAIN O2 SATURATION 99% on 2 liters of 02 via nc , no sob no distress noted no significant change noted , v/s stable afebrile , will endorse to rn day shift for continuity of care.
[2017-05-15 06:38] LABS: BASOPHILS % (AUTO) 0.4 % (0.0-2.0); EOSINOPHILS # (AUTO) 0.4 /CMM (0.0-0.7); HEMATOCRIT 31 % (33-45); HEMOGLOBIN 10.2 g/dL (11.5-14.8); LYMPHOCYTES # (AUTO) 1.7 /CMM (0.8-4.8); LYMPHOCYTES % (AUTO) 19.2 % (20.0-44.0); MEAN CORPUSCULAR HEMOGLOBIN 32 PG (26.0-33.0); MEAN CORPUSCULAR HGB CONC 33 g/dl (31.0-36.0); MEAN CORPUSCULAR VOLUME 96 fL (82-100); MONOCYTES # (AUTO) 0.5 /CMM (0.1-1.30); MONOCYTES % (AUTO) 5.6 % (2.0-12.0); NEUTROPHILS # (AUTO) 6.4 /CMM (1.8-8.9); NEUTROPHILS % (AUTO) 70.8 % (43.0-81.0); PLATELET COUNT (AUTO) 205 /CMM (150-450); RDW COEFFICIENT OF VARIATION 14.2 (11.5-15.0); RED BLOOD CELL COUNT(AUTO) 3.21 MIL/uL (4.0-5.2)
[2017-05-15 07:02] LABS: INR 1.31 (0.87-1.13); PROTHROMBIN TIME 13.7 SECS (9.5-12.7)
[2017-05-15 07:05] LABS: CALCIUM, SERUM 8.4 mg/dL (8.5-10.1); CARBON DIOXIDE 33 mmol/L (21-32); CHLORIDE 107 mmol/L (98-107); CREATININE 0.9 mg/dL (0.6-1.3); GLUCOSE 91 mg/dL (74-106); MAGNESIUM 1.9 mg/dL (1.8-2.4); PHOSPHORUS 3.1 mg/dL (2.5-4.9); POTASSIUM 4.9 mmol/L (3.5-5.1); SODIUM SERUM 144 mmol/L (136-145); UREA NITROGEN, BLOOD 28 mg/dL (7-18)
--- NOTE | 2017-05-15 08:00 | NUR ---
RN [facility]: pt.is A/Ox3, rest, on 2L O2 n/c, O2 sat. 94-96%, c/o 5/10 general, R.arm pain, R.arm was repositioned, old bruise, no edema, no redness, SR, SBP over 100, leg wound care is done at 0600 by report, pt.refused for Bipap over night by report
[2017-05-15] MEDS: MEROPENEM 500 MG in IV NS 0.9% 50 ML IV SCH (08:04)
[2017-05-15] MEDS: ALBUTEROL FS 2.5 MG/0.5 ML VIAL.NEB NEB SCH ×4 (08:27→19:27)
[2017-05-15] MEDS: BOOST PLUS FOOD-CHOCLATE 237 ML BOX PO SCH (08:51)
--- NOTE | 2017-05-15 09:10 | NUR ---
RN [facility]GGY: is in room, updated with pt.current status, VS, O2 sat., I/O, see new orders
[2017-05-15] MEDS: FUROSEMIDE 20 MG TABLET PO SCH ×2 (09:13→16:41)
[2017-05-15] MEDS: AMLODIPINE BESYLATE 5 MG TABLET PO SCH (09:13)
[2017-05-15] MEDS: HYDROCODONE/APAP 5/325MG 1 EACH TABLET PO PRN (09:14)
[2017-05-15] MEDS: HYDROGEL DRESSING 90 GM TUBE TP SCH (09:15)
[2017-05-15] MEDS: ENOXAPARIN SODIUM 80 MG/0.8 ML DISP.SYRIN SQ SCH ×2 (09:15→20:46)
[2017-05-15] MEDS: METOPROLOL TARTRATE 50 MG TABLET PO SCH ×2 (09:15→16:50)
--- NOTE | 2017-05-15 12:30 | NUR ---
RN [facility]GG[facility]: is in room, updated with pt.current condition, VS, O2sat., I/O, meds, see new orders
[2017-05-15] MEDS ORDERED: WARFARIN SODIUM 2 MG TABLET PO SCH (17:00)
--- NOTE | 2017-05-15 17:46 | NUR ---
RN [facility]GGY: pt.is rest, no pain, no c/o now, O2 sat. 94-98% on 2L n/c, Metoprolol was held: BP 100/36, HR60, PM/skin care done, INR 1.31/Coumadin 6mg given, pt.is in possible process to be discharge, no current order now, charge nurse is aware, will notify next nurse to call home health long term care phlebotomist before discharge, L.leg dressing is dry/intact
--- NOTE | 2017-05-15 18:05 | NUR ---
RN [facility]: JUANITA Islas is in room, notified re pt.status, VS, labs, meds, I/O, O2sat., see new orders
--- NOTE | 2017-05-15 19:00 | NUR ---
jarvis rn notes received pts on bed awake alert and responsive able to make needs known ,with period of confusion , on 02 at 2liters via nc sating 96% no sob no distress no c/o of pain noted, V/S STABLE AFEBRILE. Caregiver at bedside, pts on tele sr , 1st degree avb , bbb, on the monitor , hob elevated for aspiration precaution , with colin midline intact and patent , rfa g#[id number] INTACT AND PATENT. ALL NEEDS ATTENDED TOO ,ALL DUE MEDS GIVEN ORDERED , WITH F/C INTACT AND PATENT DRAINING WITH YELLOWISH URINE OUTPUT , KEPT PTS CLEAN DRY AND COMFORTABLE.
--- NOTE | 2017-05-15 19:30 | NUR ---
[facility] RN NOTES RT AT BEDSIDE BIPAP APPLIED WITH SETTINGS ORDERED PTS SATING 98% .WILL CONTINUE TO MONITOR PTS.
[2017-05-15] MEDS: ATORVASTATIN 10 MG TABLET PO SCH (21:15)
[2017-05-16] VITALS: BP 114/45
[2017-05-16] MEDS: IPRATROPIUM NEB FS 0.5 MG/2.5 ML AMPUL.NEB NEB SCH ×6 (03:51→22:53)
[2017-05-16 04:00] VITALS: BP 140/45
--- NOTE | 2017-05-16 06:52 | NUR ---
[facility] RN NOTES PTS ON BED AWAKE AND RESPONSIVE , OFF BIPAP AT 6AM , PTS PUT ON 02 AT 2LITERS VIA NC SATING 93% NO SOB NO DISTRESS , V/S STABLE AFEBRILE , WILL ENDORSE TO RN DAY SHIFT FOR CONTINUITY OF CARE.
[2017-05-16] MEDS: ALBUTEROL FS 2.5 MG/0.5 ML VIAL.NEB NEB SCH ×4 (06:57→19:23)
[2017-05-16 07:16] LABS: BASOPHILS % (AUTO) 0.2 % (0.0-2.0); EOSINOPHILS # (AUTO) 0.3 /CMM (0.0-0.7); EOSINOPHILS % (AUTO) 3.4 % (0.0-6.0); HEMATOCRIT 30 % (33-45); LYMPHOCYTES # (AUTO) 1.5 /CMM (0.8-4.8); LYMPHOCYTES % (AUTO) 19.7 % (20.0-44.0); MEAN CORPUSCULAR HEMOGLOBIN 32 PG (26.0-33.0); MEAN CORPUSCULAR HGB CONC 33 g/dl (31.0-36.0); MEAN CORPUSCULAR VOLUME 96 fL (82-100); MONOCYTES # (AUTO) 0.4 /CMM (0.1-1.30); MONOCYTES % (AUTO) 5.2 % (2.0-12.0); NEUTROPHILS # (AUTO) 5.6 /CMM (1.8-8.9); NEUTROPHILS % (AUTO) 71.5 % (43.0-81.0); PLATELET COUNT (AUTO) 186 /CMM (150-450); RDW COEFFICIENT OF VARIATION 14.3 (11.5-15.0); RED BLOOD CELL COUNT(AUTO) 3.15 MIL/uL (4.0-5.2); WHITE BLOOD COUNT (AUTO) 7.9 K/uL (4.3-11.0)
--- NOTE | 2017-05-16 07:37 | NUR ---
RN [facility]: pt.is A/Ox2, no c/o, no pain, Bipap is off since 6am, O2 sat. 95-97% now on 2L n/c, SR, SBP over 100, wounds care done over night by report, pt.is oriented for POC
[2017-05-16 07:53] LABS: INR 1.53 (0.87-1.13)
[2017-05-16 07:55] LABS: CALCIUM, SERUM 8.3 mg/dL (8.5-10.1); CARBON DIOXIDE 31 mmol/L (21-32); CHLORIDE 106 mmol/L (98-107); GLUCOSE 87 mg/dL (74-106); MAGNESIUM 1.9 mg/dL (1.8-2.4); PHOSPHORUS 3.6 mg/dL (2.5-4.9); POTASSIUM 4.9 mmol/L (3.5-5.1); SODIUM SERUM 144 mmol/L (136-145); UREA NITROGEN, BLOOD 32 mg/dL (7-18)
[2017-05-16 08:00] VITALS: BP 112/64
[2017-05-16] MEDS: AMLODIPINE BESYLATE 5 MG TABLET PO SCH (09:03)
[2017-05-16] MEDS: METOPROLOL TARTRATE 50 MG TABLET PO SCH ×2 (09:03→17:10)
[2017-05-16] MEDS: FUROSEMIDE 20 MG TABLET PO SCH ×2 (09:03→17:09)
[2017-05-16] MEDS: HYDROGEL DRESSING 90 GM TUBE TP SCH (09:04)
[2017-05-16] MEDS: BOOST PLUS FOOD-CHOCLATE 237 ML BOX PO SCH (09:04)
[2017-05-16] MEDS: ENOXAPARIN SODIUM 80 MG/0.8 ML DISP.SYRIN SQ SCH ×2 (09:05→21:21)
--- NOTE | 2017-05-16 09:25 | NUR ---
RN [facility]: is in room, updated with pt.current condition, VS, O2 sat., I/O, pt.was on Bipap over night
--- NOTE | 2017-05-16 10:30 | NUR ---
RN [facility]GG[facility]: updated with pt.status, VS, I/O, (-950ml/24H), labs, meds, said: ask datastage developer is Ok to discharge pt., personal attendant confirmed: pt.never was on O2 support in the home
--- NOTE | 2017-05-16 11:10 | NUR ---
RN [facility]: got ABG pH 7.33, pCO2 73, pO2 64, HCO2 38, notified , he siad: place pt back on Bipap, RT Rambo notified
--- NOTE | 2017-05-16 11:10 | NUR ---
RN [facility]: spoke with re question agree for pt.discharge, said: place pt.on r/a, pulse oximetry monitoring, RT updated
--- NOTE | 2017-05-16 11:11 | NUR ---
RN [facility]GGY: previous note is error
--- NOTE | 2017-05-16 11:45 | NUR ---
RN [facility]GG[facility]: pt.is rest, no c/o SOB now, O2sat 91-92% on R/a, HR 110-115
[2017-05-16 12:00] VITALS: BP 135/57
--- NOTE | 2017-05-16 12:10 | NUR ---
RN [facility]GG[facility]: O2sat. 87-89% on r/a, HR 115-118, no c/o, placed back on O2 4L n/c, is in room, updated with all above, VS, I/O, meds, INR 1.53, ordered: Coumadin 7 mg PO dose today, check INR tomorrow, continue Lovenox
--- NOTE | 2017-05-16 12:15 | NUR ---
RN PEGGY: doses/orders were rechecked, pt.was getting Coumadin on [facility] in the home, notified and verified with , last order: Coumadin 5 mg PO daily with INR control
--- NOTE | 2017-05-16 12:31 | NUR ---
RN PEGG[facility]: O2 sat. 96-98% now, HR 100-110, continue O2 3L n/c
--- NOTE | 2017-05-16 13:15 | NUR ---
RN PEGGY: Coumadin order verification is done by , pharmacy, RN: 5 mg PO daily
[2017-05-16 16:00] VITALS: BP 113/57
--- NOTE | 2017-05-16 16:10 | NUR ---
RN [facility]GG[facility]: Micheal, pt.son is in room, notified re pt.condition, VS, I/O, respiratory status/dynamic, O2 sat., orders, POC, wants to be notified him and Home health care agency at least by 24 hrs before pt.d/c, charge nurse is aware that family independence case manager doing on and will keep notification from shift to shift, will endorse next shift for above information, pt.is A/Ox3, no pain, no c/o, SR now, O2 sat. 94-98% on 2 L n/c
[2017-05-16] MEDS ORDERED: WARFARIN SODIUM 2 MG TABLET PO SCH (17:00)
[2017-05-16] MEDS: WARFARIN SODIUM 2 MG TABLET PO SCH (17:12)
[2017-05-16 20:00] VITALS: BP 119/51
[2017-05-16] MEDS: ATORVASTATIN 10 MG TABLET PO SCH (21:14)
[2017-05-16] MEDS: HYDROCODONE/APAP 5/325MG 1 EACH TABLET PO PRN (21:16)
--- NOTE | 2017-05-16 22:00 | NUR ---
[facility] RN NOTES RT AT BEDSIDE PTS WAS PLACE ON BIPAP SETTING WELL TOLERATED, NO SOB NO DISTRESS NOTED ,SATING 94% V/S STABLE AFEBRILE
[2017-05-17] VITALS: BP 108/55
[2017-05-17] MEDS: IPRATROPIUM NEB FS 0.5 MG/2.5 ML AMPUL.NEB NEB SCH ×5 (03:01→20:24)
[2017-05-17 04:00] VITALS: BP 130/67
--- NOTE | 2017-05-17 06:15 | NUR ---
[facility] RN NOTES PTS REMAINS ON BIPAP SATING 98%, WITH CAREGIVER AT BEDSIDE , V/S STABLE AND AFEBRILE WILL ENDORSE TO RN DAY SHIFT FOR CONTINUITY OF CARE.
[2017-05-17 07:36] LABS: BASOPHILS % (AUTO) 0.6 % (0.0-2.0); EOSINOPHILS # (AUTO) 0.3 /CMM (0.0-0.7); EOSINOPHILS % (AUTO) 3.7 % (0.0-6.0); HEMATOCRIT 31 % (33-45); HEMOGLOBIN 10.2 g/dL (11.5-14.8); LYMPHOCYTES # (AUTO) 1.3 /CMM (0.8-4.8); LYMPHOCYTES % (AUTO) 18.6 % (20.0-44.0); MEAN CORPUSCULAR HEMOGLOBIN 32 PG (26.0-33.0); MEAN CORPUSCULAR HGB CONC 33 g/dl (31.0-36.0); MEAN CORPUSCULAR VOLUME 95 fL (82-100); MONOCYTES # (AUTO) 0.4 /CMM (0.1-1.30); MONOCYTES % (AUTO) 6.5 % (2.0-12.0); NEUTROPHILS # (AUTO) 4.8 /CMM (1.8-8.9); NEUTROPHILS % (AUTO) 70.6 % (43.0-81.0); PLATELET COUNT (AUTO) 199 /CMM (150-450); RDW COEFFICIENT OF VARIATION 14.2 (11.5-15.0); RED BLOOD CELL COUNT(AUTO) 3.22 MIL/uL (4.0-5.2); WHITE BLOOD COUNT (AUTO) 6.7 K/uL (4.3-11.0)
[2017-05-17 07:47] LABS: INR 1.92 (0.87-1.13); PROTHROMBIN TIME 20.1 SECS (9.5-12.7)
--- NOTE | 2017-05-17 07:47 | NUR ---
INITIAL [facility] RN NOTE RCVD PT SLEEPING, AROUSED TO NAME, LIGHT TOUCH. SR W/1ST AV BLOCK. TOLERATING O2 VIA NC. HONG CATH DRAINING CLOUDY, YELLOW URINE. IV ACCESSES C/D/I/PATENT. NO S/O INFILTRATION/PHLEBITIS OBSERVED UPON FLUSHING. WILL CONTINUE TO MONITOR PT FOR SAFETY AND COMFORT. CALL LIGHT WITHIN REACH. Addendum: 05/17/17 at 1149 by ECTOR HOLLINGSWORTH RN PT'S MEDICAL INSURANCE CLAIMS PROCESSOR SLEEPING AT BEDSIDE.
[2017-05-17 07:51] LABS: CALCIUM, SERUM 8.5 mg/dL (8.5-10.1); CARBON DIOXIDE 32 mmol/L (21-32); CHLORIDE 105 mmol/L (98-107); GLUCOSE 87 mg/dL (74-106); MAGNESIUM 2.2 mg/dL (1.8-2.4); POTASSIUM 4.9 mmol/L (3.5-5.1); SODIUM SERUM 143 mmol/L (136-145); UREA NITROGEN, BLOOD 32 mg/dL (7-18)
[2017-05-17] MEDS: ALBUTEROL FS 2.5 MG/0.5 ML VIAL.NEB NEB SCH ×4 (07:56→20:24)
[2017-05-17 08:00] VITALS: BP 162/54
[2017-05-17] MEDS: BOOST PLUS FOOD-CHOCLATE 237 ML BOX PO SCH (08:22)
[2017-05-17] MEDS: AMLODIPINE BESYLATE 5 MG TABLET PO SCH (08:23)
[2017-05-17] MEDS: FUROSEMIDE 20 MG TABLET PO SCH ×2 (08:23→16:49)
[2017-05-17] MEDS: ENOXAPARIN SODIUM 80 MG/0.8 ML DISP.SYRIN SQ SCH (08:24)
[2017-05-17] MEDS: HYDROGEL DRESSING 90 GM TUBE TP SCH (08:26)
[2017-05-17] MEDS: METOPROLOL TARTRATE 50 MG TABLET PO SCH ×2 (08:51→16:49)
[2017-05-17 12:00] VITALS: BP 132/48
[2017-05-17 16:00] VITALS: BP 115/43
[2017-05-17] MEDS: WARFARIN SODIUM 2 MG TABLET PO SCH (16:55)
[2017-05-17] MEDS: HYDROCODONE/APAP 5/325MG 1 EACH TABLET PO PRN (18:49)
--- NOTE | 2017-05-17 18:54 | NUR ---
[facility] RN NOTE PT REMAINS STABLE TOLERATING O2 VIA NC, SR W/1ST AVB ON TELE. TOLERATING ORDERED DIET. HONG DRAINING YELLOW URINE. IV ACCESSES C/D/I/PATENT. NO S/O INFILTRATION/PHLEBITIS OBSERVED. IVF INFUSING TKO. PT'S CARE WILL BE ENDORSED TO E D TECH RN FOR CONTINUITY OF CARE. BED IN LOW AND LOCKED POSITION. CALL LIGHT WITHIN REACH.
[2017-05-17 20:00] VITALS: BP 135/67
--- NOTE | 2017-05-17 20:30 | NUR ---
REGIONAL SALES CONSULTANT - REC'D PT. A&O X 2, CAREGIVER AT BS. HEART MONITOR SHOWS SR/BBB/1ST DEGREE AVB. SBP'S ARE LABILE. PT.IS ON A CARDIAC DIET/FEEDER. PT. IS ON O2/2L/NC-CLEAR/DIM THRU-OUT LUNG VANEGAS. O2 SATS ARE >96%. AFEBRILE. ALL PULSES PALPABLE X 4 EXT. PT. WAS ADM. NORCO AT 18:30 PT. STATES SHE IS STILL IN PAIN. PT. REPOSITIONED. ISOLATION FOR ESBL/URINE & LLE WOUND. HONG CATH TO GRAVITY. RUE MIDLINE & RFA-PIV HAVE ALL PORTS PATENT TO FLUSH. CONT. POC.
--- NOTE | 2017-05-17 21:10 | NUR ---
PLACED ON BIPAP, GABE CHAN NOTIFIED
--- NOTE | 2017-05-17 21:15 | NUR ---
PT. WAS ON O2/2L/NC & WAS PLACED ON BIPAP BY CRISTEL RT. BIPAP SETTINGS ARE I:E: 18/10-30%-RATE OF 16. CONT. POC.
[2017-05-17] MEDS: ATORVASTATIN 10 MG TABLET PO SCH (21:16)
[2017-05-18] VITALS: BP 129/58
[2017-05-18] MEDS: IPRATROPIUM NEB FS 0.5 MG/2.5 ML AMPUL.NEB NEB SCH ×5 (00:02→15:03)
--- NOTE | 2017-05-18 02:00 | NUR ---
PAPER WRAPPING MACHINE OPERATOR - PT. WAS ADM. A COMP. BEDBATH W/ORAL,CHULA,SKIN/WOUND CARE ADM. POST. LLE WOUND WAS PACKED W/IODOFORM IN STERILE SALINE SOLUTION & MEPILEX. MEPILEX TO OTHER SITES OF LLE. CAREGIVER STOOD AT BS & WATCHED RN & PAPO/PITA PERFORM ADL'S. CONT. POC.
[2017-05-18 04:00] VITALS: BP 157/73
[2017-05-18 06:40] LABS: BASOPHILS % (AUTO) 0.4 % (0.0-2.0); EOSINOPHILS # (AUTO) 0.3 /CMM (0.0-0.7); EOSINOPHILS % (AUTO) 4.5 % (0.0-6.0); HEMATOCRIT 32 % (33-45); HEMOGLOBIN 10.6 g/dL (11.5-14.8); LYMPHOCYTES # (AUTO) 1.7 /CMM (0.8-4.8); LYMPHOCYTES % (AUTO) 22.3 % (20.0-44.0); MEAN CORPUSCULAR HEMOGLOBIN 32 PG (26.0-33.0); MEAN CORPUSCULAR HGB CONC 33 g/dl (31.0-36.0); MEAN CORPUSCULAR VOLUME 96 fL (82-100); MONOCYTES # (AUTO) 0.5 /CMM (0.1-1.30); MONOCYTES % (AUTO) 6.8 % (2.0-12.0); NEUTROPHILS # (AUTO) 4.9 /CMM (1.8-8.9); PLATELET COUNT (AUTO) 202 /CMM (150-450); RED BLOOD CELL COUNT(AUTO) 3.31 MIL/uL (4.0-5.2); WHITE BLOOD COUNT (AUTO) 7.5 K/uL (4.3-11.0)
--- NOTE | 2017-05-18 07:00 | NUR ---
rn initial note received pt in bed,awake, follows commands with repeated direction, moves extremities, pt is on 2l nc, sating well, no s/s of resp.distress or sob noted at this time, pt on tele monitor showing sr @84bpm, no s/s of chest pain or discomfort at this time,pt has f/c draining yellow urine to gravity, pt is noted with multiple skin issues, photos taken and in chart, wound treatments ack and will be carried out at all times, pt has colin midline,sl, rfa #[id number],sl,c/d/i/patent, flushing well, no s/s of infection/ infiltration noted at this time, caregiver at bedside, all safety measures in place at all times, all light within easy reach, all needs met at this time, will monitor pt closely for changes
[2017-05-18 07:01] LABS: INR 2.25 (0.87-1.13); PROTHROMBIN TIME 23.6 SECS (9.5-12.7)
[2017-05-18 07:07] LABS: CALCIUM, SERUM 8.6 mg/dL (8.5-10.1); CARBON DIOXIDE 33 mmol/L (21-32); CHLORIDE 104 mmol/L (98-107); GLUCOSE 88 mg/dL (74-106); MAGNESIUM 2.1 mg/dL (1.8-2.4); PHOSPHORUS 3.6 mg/dL (2.5-4.9); POTASSIUM 4.5 mmol/L (3.5-5.1); SODIUM SERUM 142 mmol/L (136-145); UREA NITROGEN, BLOOD 33 mg/dL (7-18)
[2017-05-18] MEDS: ALBUTEROL FS 2.5 MG/0.5 ML VIAL.NEB NEB SCH ×3 (07:25→15:03)
[2017-05-18 08:00] VITALS: BP 121/66
[2017-05-18] MEDS: HYDROCODONE/APAP 5/325MG 1 EACH TABLET PO PRN (08:50)
[2017-05-18] MEDS: FUROSEMIDE 20 MG TABLET PO SCH ×2 (08:50→16:23)
[2017-05-18] MEDS: AMLODIPINE BESYLATE 5 MG TABLET PO SCH (08:51)
[2017-05-18] MEDS: METOPROLOL TARTRATE 50 MG TABLET PO SCH ×2 (08:51→16:24)
[2017-05-18] MEDS: HYDROGEL DRESSING 90 GM TUBE TP SCH (08:52)
[2017-05-18] MEDS: Z GUARD REMEDY 2 OZ OINT TP PRN (08:52)
[2017-05-18] MEDS: BOOST PLUS FOOD-CHOCLATE 237 ML BOX PO SCH (08:52)
[2017-05-18 12:00] VITALS: BP 111/33
[2017-05-18] MEDS ORDERED: FURO20TA4 PO (13:29)
[2017-05-18] MEDS ORDERED: WARF1TAB6 PO (13:29)
[2017-05-18] MEDS ORDERED: AMLO5TAB2 PO (13:29)
[2017-05-18] MEDS ORDERED: ALBU2.5V13 NEB (13:29)
[2017-05-18] MEDS ORDERED: IPRA0.2S9 NEB (13:29)
[2017-05-18 16:00] VITALS: BP_SYST 112; BP_SYST 99; BP_DIAS 43; BP_DIAS 78
[2017-05-18 16:24] VITALS: BP 112/78
[2017-05-18] MEDS: WARFARIN SODIUM 2 MG TABLET PO SCH (16:24)
[2017-05-18] MEDS ORDERED: WARFARIN SODIUM 2 MG TABLET PO SCH (17:00)
--- NOTE | 2017-05-18 18:26 | NUR ---
discharge note received discharge order, all medications given, all md orders carried out, all wound treatments carried out, pt was kept clean and dry, f/c removed, pt urinated, iv removed, no bleeding, tele box removed, all belongings with caregiver, belongings list signed, all paperwork signed and copies with caregiver, all questions and concerns answered, rx with caregiver, spoke with son jaspal, answered all questions, photos taken and in chart, report given to paramedics, pt is going home with caregiver. pt remained stable during shift
== END 2017-05-18 18:20 | disposition home health service (06) | DRG 871 ==
LOC: ER 09:48 → TELE 12:11 → MED 05-06 10:20 → ICU 05-08 15:56 → TELE-TD 05-14 15:13
PROVIDERS: ADMIT Internal Medicine; ATTEND Internal Medicine
PROC: 5A09557 Assistance with Respiratory Ventilation, Greater than 96 Consecutive Hours, Continuous Positive Airway Pressure (ICD-10-PCS; principal; 2017-05-05)
PROC: 05H533Z Insertion of Infusion Device into Right Subclavian Vein, Percutaneous Approach (ICD-10-PCS; 2017-05-08)
PROC: B546ZZA Ultrasonography of Right Subclavian Vein, Guidance (ICD-10-PCS; 2017-05-08)
DX: A41.9 Sepsis, unspecified organism (principal); N17.0 Acute kidney failure with tubular necrosis; J96.02 Acute respiratory failure with hypercapnia; G93.40 Encephalopathy, unspecified; G93.41 Metabolic encephalopathy; I50.33 Acute on chronic diastolic (congestive) heart failure; E46 Unspecified protein-calorie malnutrition; I50.32 Chronic diastolic (congestive) heart failure; I13.0 Hypertensive heart and chronic kidney disease with heart failure and stage 1 through stage 4 chronic kidney disease, or unspecified chronic kidney disease; E44.1 Mild protein-calorie malnutrition; L03.116 Cellulitis of left lower limb; N39.0 Urinary tract infection, site not specified; L97.229 Non-pressure chronic ulcer of left calf with unspecified severity; E66.2 Morbid (severe) obesity with alveolar hypoventilation; E87.5 Hyperkalemia; E78.5 Hyperlipidemia, unspecified; E83.41 Hypermagnesemia; Z95.2 Presence of prosthetic heart valve; Z91.19 Patient's noncompliance with other medical treatment and regimen; Z87.440 Personal history of urinary (tract) infections; Z79.01 Long term (current) use of anticoagulants; F03.90 Unspecified dementia, unspecified severity, without behavioral disturbance, psychotic disturbance, mood disturbance, and anxiety; N18.9 Chronic kidney disease, unspecified; D63.8 Anemia in other chronic diseases classified elsewhere; I70.0 Atherosclerosis of aorta; E83.39 Other disorders of phosphorus metabolism; I25.10 Atherosclerotic heart disease of native coronary artery without angina pectoris; R53.81 Other malaise; K21.9 Gastro-esophageal reflux disease without esophagitis; Z68.31 Body mass index [BMI] 31.0-31.9, adult; B96.20 Unspecified Escherichia coli [E. coli] as the cause of diseases classified elsewhere; S11.90XA Unspecified open wound of unspecified part of neck, initial encounter; X58.XXXA Exposure to other specified factors, initial encounter; Y92.009 Unspecified place in unspecified non-institutional (private) residence as the place of occurrence of the external cause
CPT/HCPCS: 36415; 36569; 36600; 71010-TC; 76770-TC; 80048-TC; 80053-TC; 80061-TC; 80076-TC; 80202-TC; 81000-TC; 82550-TC; 82803-TC; 83605-TC; 83735-TC; 83880; 83970; 84100-TC; 84155; 84165; 84484-TC; 85025-TC; 85027-TC; 85610-TC; 85730-TC; 87040-TC; 87070-TC; 87081-TC; 87086-TC; 87186-TC; 93307-TC; 93970-TC; 94002-TC; 94760-TC; 94762-TC; 94799-TC; 99082-TC; A4216; A4606; A6248; A6402; A6403; A6407; C1769; J0610; J0696; J1650; J1940; J2185; J2543; J3370; J7030; J7040; J7050; J7060; Z7610